=== PATIENT | female | born 1970 | race Caucasian/White ===

== ENCOUNTER 2023-06-19 14:15 | Inpatient (IN) | payer OTHER, SELFPAY ==
[2023-06-19 14:55] VITALS: BP 111/53; PULSE 62; RESP 18; TEMP 36.6; O2SAT 97
[2023-06-19 14:57] VITALS: BMI 23.5
--- NOTE | 2023-06-19 15:27 | PC.ADMIT ---
[facility] B[facility] 1 with psychotic features. The precipitant of admission includes paranoia, disorganization and delusions. She is not alert, oriented to person, place or time. She is cooperative with admission process. Patient reports she is tired. Affect is anxious. She endorsed AVH but did not elaborate on what is being said or seen. Thought process is disorganized and ability to focus is poor. Appetite and sleep is okay. Tox screen is negative. She reports bruises all over but none noticed by TW during skin assessment. She denies other physical complaint. She denies ideation, plan or intent to harm self or others. Patient is placed on 15 minute checks for safety.?
--- NOTE | 2023-06-19 17:11 | HO.PM.IMCN ---
History of Present Illness Data of Consult Service Date: 06/19/23 Primary Care Provider: Unknown Physician HPI Reason for consult: Admission H&P Pt is a 52-year-old female with a PMH significant for?breast cancer s/p surgery in 2022 and bipolar disorder who is admitted to psychiatry unit for decompensation and hypomanic episode. Patient apparently had been progressively declining the past couple of days and exhibiting symptoms of delirium. Medical consult for admission H&P. ?Patient appears extremely hypomanic at time of interview, with slow gait, flat affect, had speaking very softly and slowly. Patient also noted to be softly crying at different points in the interview. Patient states she feels mildly nauseous, ?like I did when I was ?. Denies any vomiting. Patient otherwise has no acute medical complaints at this time. Denies chest pain/pressure, palpitations. No shortness of breath. No changes in bowel or bladder habits. Denies headache, acute vision changes. Review of Systems Review of Systems: Slight nausea, no vomiting Patient otherwise has no acute medical complaints at this time [facility] Medical History (Updated 06/19/23 @ 18:20 by ADELITA Sumner) Bipolar disorder Breast cancer, right Surgical History (Updated 06/19/23 @ 18:18 by ADELITA Sumner) H/O bilateral oophorectomy Social History Household Members: Spouse and Children Household Members Other:: , 2 other children Housing: House Do you presently have visiting nurse or other home services: No Patient Tobacco Use Status: Never used Tobacco Use of substances other than those prescribed or required for medical reasons: No Currently Displaying Signs/Symptoms of Drug Intoxication Withdrawal: No Any prior treatment program specific to substance use: No Have you been hit, kicked, punched, or otherwise hurt by someone within the past year? If so, by whom?: No Do you feel safe in your current relationship?: Yes Is there a partner from a previous relationship who is making you feel unsafe now?: No Are you made to feel afraid or neglected: No Advance Directives: No Do you have thoughts of harming others: None Do you have a plan to hurt others: No Plan Recently lost weight without trying: No How much weight loss: Not applicable Eating poorly because of decreased appetite: No Nutrition screen score: 0 Nutrition Risks: No Nutritional Risk Patient : No : No Poor oral hygiene: No Meds Allergies Allergy/AdvReac Type Severity Reaction Status Date / Time Unable to Assess Allergy Verified 06/19/23 14:18 Active Medications: Current Medications Acetaminophen (Acetaminophen 325 Mg Tablet) 650 mg PO Q6H PRN PRN Reason: Headache/Pain Mild Scale (1-3) Al Hydroxide/Mg Hydroxide (Magnesium Hydrox/Alum Hydrox 30 Ml Oral.Susp) 30 ml PO Q6H PRN PRN Reason: Heartburn/Nausea Anastrozole (Anastrozole 1 Mg Tablet) 1 mg PO DAILY [facility] Hydroxyzine HCl (Hydroxyzine Hcl 25 Mg Tablet) 25 mg PO Q6H PRN PRN Reason: Anxiety Lamotrigine (Lamotrigine 100 Mg Tablet) 100 mg PO BEDTIME [facility] Magnesium Hydroxide (Milk Of Magnesia 30 Ml Oral.Susp) 30 ml PO DAILY PRN PRN Reason: Constipation Nicotine Polacrilex (Nicotine Polacrilex 2 Mg Gum) 4 mg BUCCAL Q2H PRN PRN Reason: Nicotine Cravings Non-Formulary Medication (Lumateperone [Caplyta]) 10.5 mg PO BEDTIME [facility] Non-Formulary Medication (Lumateperone [Caplyta]) 21 mg PO BEDTIME [facility] Non-Formulary Medication (Lumateperone [Caplyta]) 42 mg PO BEDTIME [facility] Non-Formulary Medication (Lurasidone) 120 mg PO BEDTIME [facility] Non-Formulary Medication ([place] 8-Fht-Wrk-Fish Oil) 1 cap PO QAM [facility] Oxcarbazepine (Oxcarbazepine 300 Mg Tablet) 300 mg PO BEDTIME [facility] Trazodone HCl (Trazodone Hcl 50 Mg Tablet) 50 mg PO BEDTIME MRX1 PRN PRN Reason: Insomnia Home Medications Medication Instructions Recorded Confirmed Last Taken Type anastrozole 1 mg tablet 1 mg PO DAILY 06/19/23 06/19/23 Unknown History lamotrigine 100 mg tablet 100 mg PO BEDTIME 06/19/23 06/19/23 Unknown History lorazepam 1 mg tablet (Ativan) 1 mg PO 06/19/23 Unknown History lumateperone 10.5 mg capsule 10.5 mg PO BEDTIME 06/19/23 06/19/23 Unknown History (Caplyta) lumateperone 21 mg capsule 21 mg PO BEDTIME 06/19/23 06/19/23 Unknown History (Caplyta) lumateperone 42 mg capsule 42 mg PO BEDTIME 06/19/23 06/19/23 Unknown History (Caplyta) lurasidone 120 mg tablet 120 mg PO BEDTIME 06/19/23 06/19/23 Unknown History omega-3 300 mg-dha 120 mg-epa 180 1 cap PO QAM 06/19/23 06/19/23 Unknown History mg-fish oil 1,000 mg capsule oxcarbazepine 300 mg tablet 300 mg PO BEDTIME 06/19/23 06/19/23 Unknown History Physical Exam Vital Signs and Narrative: Vital Signs: Last Vital Signs Temp 97.9 F 06/19/23 14:55 Pulse 62 06/19/23 14:55 Resp 18 06/19/23 14:55 BP 111/53 L 06/19/23 14:55 Pulse Ox 97 06/19/23 14:55 O2 Del Method Room Air 06/19/23 14:55 BMI result Body Mass Index 23.5 General: AOx3, no acute distress Resp: CTA bilaterally CVS: S1, S2, RRR GI: +BS, NT, no distention Skin: Warm, dry Neuro: Cranial nerves II-XII grossly intact bilaterally. Motor grossly intact bilaterally Extremities: No edema Psych: Flat affect, speaking very slowly and quietly, crying at times Assessment and Plan (1) Medical clearance for psychiatric admission: Status: Acute Plan Pt is a 52-year-old female with a PMH significant for?breast cancer s/p surgery in 2022 and bipolar disorder who is admitted to [facility] psychiatry unit for decompensation and hypomanic episode. Patient apparently had been progressively declining the past couple of days and exhibiting symptoms of delirium. Medical consult for admission H&P. Mood disorder Plan as per psychiatry Hx of right breast cancer s/p surgery earlier this year States was scheduled to begin radiation therapy tomorrow Not currently on chemo F/U outpatient to reschedule radiation Nausea Ondansetron prn Pt otherwise denies any other acute complaints or chronic conditions at this time. Thank you for allowing us to participate in the care of this patient. Signing off at this time. Please re-consult if any acute complaints or issues arise.
[2023-06-19 20:08] VITALS: BP 118/61; PULSE 66; RESP 14; TEMP 36.1; O2SAT 98
[2023-06-19] MEDS: lamoTRIgine 25 MG TABLET 50 MG PO (21:07)
[2023-06-19] MEDS: Lurasidone HCl 40 MG TABLET 120 MG PO (21:07)
[2023-06-19] MEDS: OXcarbazepine 300 MG TABLET PO (21:07)
[2023-06-19] MEDS: Ibuprofen 600 MG TABLET PO (22:07)
[2023-06-20 00:40] VITALS: BP 113/62; PULSE 58; RESP 16; O2SAT 96
--- NOTE | 2023-06-20 02:01 | PC.NURSE ---
Pt came out to nurse's station at 0040 and was c/o dizziness. VS were 113/62 58bpm 96% Sp02 16 RR. Pt encouraged to drink more fluids and given a pitcher of water for her room. Also educated pt to wait a minute and sit on edge of bed before standing as getting up too quickly can cause dizziness and can be unsafe if she falls.
[2023-06-20 07:25] VITALS: BP 98/50; PULSE 59; RESP 16; TEMP 36.2; O2SAT 95
[2023-06-20] MEDS: Anastrozole 1 MG TABLET PO (09:21)
--- NOTE | 2023-06-20 12:04 | HO.PSYADMNOT ---
HPI Date of Service: 06/20/23 Chief Complaint: Psychosis HPI Narrative: per crisis eval, pt voluntarily presented to [facility], with her , seeking inpt care. she was described as not being oriented to time, place, person, or situation at presentation and was unable to participate in evaluation.she appeared to be hyper-voodoo, lying in blanket occasionally raising her arms to the air as if beseeching, making voodoo-themed utterances. per collateral from , pt had medication change this fall and recently arrived at therapeutic dose of new medication, which does not appear to be helping. she has become progressively more psychotic in recent days. she had breast CA Dx this fall and had successful surgery, had not been on chemo but had been getting radiation Tx (stopped since psychosis recrudescence). on interview with MD, pt states we are in [place] and is unable to name the name of this facility, even after being told we are in [place]. believes we are on 4th floor. states xmas is june 29. unable to say whether this is a typcail conor presentation for her, saying her manias used to be more angry, but now they are fun because i get to see all the things i want to see. she references voodoo entities. she endorsed hearing the voice of god presently. she reported that her mother 5 years ago and at the same time she had her ovaries removed, and then her mental illness began ( corroborates this information). she reports fear of needles and only staying on lithium briefly because of that. per , lithium worked well for her. both and pt report negative experience with VPA, saying it exacerbated conor (possibly delirium?). she has not tried tegretol. evidence-based mood stabilizers reviewed with pt, she agrees to trial of lithium. per conversation with , pt has been on various medications over the past 4 years, and has not become stable. he feels that trileptal and lamictal have been completely ineffective, but that the brief period she was on lithium she did much better. he does not believe caplyta has helped and is in favor of DCing lamictal, trileptal, and caplyta. he reports conversation with pt's oncologist, Dr. King of [facility], whom he reports endorsed DC of anastrozole for now. Past Psychiatric History: hosps: 3 prior SA: denies SIB: denies HIB: denies outpt: seen at [facility] dann pretty prescriber lithium - h/o trial, briefly, DCed due to pt's fear of needles VPA - both pt and report worsened conor with VPA. ? delirium? tegretol - no h/o trial Medical Evaluation Reviewed: Hospitalist Inga Pending [facility] Medical History (Updated 06/20/23 @ 14:25 by Tony Anderson MD) Bipolar disorder Breast cancer, right Narrative: 03/2023 had breast CA sugery Surgical History (Updated 06/19/23 @ 18:18 by ADELITA Sumner) H/O bilateral oophorectomy Family History: depression - sister, brother, father Social History: , works as a massage therapist. born and raised in [place]. 2 kids. 1 sister. 1 brother. Substance History: denies use of all substances Trauma History: denies any trauma Hx Diagnostics Vital Signs (24Hr): Vital Signs - 24 hr 06/19/23 14:55 06/19/23 20:08 06/20/23 00:40 Temperature 97.9 F 97.0 F Pulse Rate 62 66 58 Respiratory Rate 18 14 16 Blood Pressure 111/53 L 118/61 113/62 Pulse Oximetry 97 98 96 Oxygen Delivery Method Room Air Room Air Room Air 06/20/23 07:25 Temperature 97.2 F Pulse Rate 59 Respiratory Rate 16 Blood Pressure 98/50 L Pulse Oximetry 95 Oxygen Delivery Method Room Air BMI result Body Mass Index 23.5 Meds/Allergies Meds Home Medications Medication Instructions Recorded Confirmed Type anastrozole 1 mg tablet 1 mg PO DAILY 06/19/23 06/19/23 History lamotrigine 100 mg tablet 100 mg PO BEDTIME 06/19/23 06/19/23 History lorazepam 1 mg tablet (Ativan) 1 mg PO 06/19/23 History lumateperone 10.5 mg capsule 10.5 mg PO BEDTIME 06/19/23 06/19/23 History (Caplyta) lumateperone 21 mg capsule 21 mg PO BEDTIME 06/19/23 06/19/23 History (Caplyta) lumateperone 42 mg capsule 42 mg PO BEDTIME 06/19/23 06/19/23 History (Caplyta) lurasidone 120 mg tablet 120 mg PO BEDTIME 06/19/23 06/19/23 History omega-3 300 mg-dha 120 mg-epa 180 1 cap PO QAM 06/19/23 06/19/23 History mg-fish oil 1,000 mg capsule oxcarbazepine 300 mg tablet 300 mg PO BEDTIME 06/19/23 06/19/23 History Allergies Allergies Allergy/AdvReac Type Severity Reaction Status Date / Time Unable to Assess Allergy Verified 06/19/23 14:18 Mental Status Exam Mental Status Exam Narrative: dressed in a [place]-bear print onesie, adequately groomed. cooperative. no PMA/PMR. speech soft, nml rate, amount. decr prosody. nml latency. thoughts generally linear and logical. affect constricted, hypo-intense, non-labile. mood very tired. denies SI/SIBI/HI/VH. endorses hearing just god. the evil one doesn't talk to me as much as he used to. Assessment & Plan Assessment & Plan (1) Bipolar I disorder with conor: Status: Acute Code(s): F31.10 - Bipolar disorder, current episode manic without psychotic features, unspecified Plan conor - DC caplyta, add zyprexa for now. start lithium per pt request. taper and DC lamictal and trileptal as not evidence-based mood stabilizers and not indicated in the present clinical context. cancer - per collateral from pt's , DC anastrozole for now on the word of Dr. King, pt's oncologist at [facility]. Dr. King is concerned the hormonal aspect of the medication may be complicating matters. Patient educated on: diagnosis and medication risk/benefits Reason for continued inpatient stay Substantial Risk for: inability to function and rapid decompensation Statement Statement: I have reviewed the history and physical and performed a pertinent examination on my patient. No changes have occurred unless specified. If the History and Physical was not performed prior to admission, the Hospitalist's service will be consulted for completing the admission physical. Time Spent With Patient Time: Total time managing care of this patient today __75__ minutes.
[2023-06-20] MEDS: Lithium Carbonate ER 450 MG TABLET.ER PO ×2 (14:26→21:50)
[2023-06-20] MEDS: Benzocaine 20 % Oral Gel 9 GM TUBE 1 APPL MUCOUS MEM (14:31)
[2023-06-20] MEDS: Acetaminophen 325 MG TABLET 650 MG PO (14:32)
[2023-06-20] MEDS: Fluticasone Propionate Nasal 16 GM SPRAY 1 SPRAY NOSTRIL-B (14:46)
--- NOTE | 2023-06-20 18:15 | PC.NURSE ---
Pt appeared confused and wandered into a male patient's room and ended up in his bathroom with her clothes off. Male pt was not in the room. Pt was crying and stated I don't know how I ended up here, I'm so confused I don't know what happened. Pt placed on 5 minute checks locked bathroom for safety.
[2023-06-20 20:01] VITALS: BP 127/77; PULSE 63; RESP 18; TEMP 36.7; O2SAT 97
[2023-06-20] MEDS: OLANZapine 10 MG TABLET PO (21:50)
[2023-06-20] MEDS: lamoTRIgine 25 MG TABLET 50 MG PO (21:51)
[2023-06-20] MEDS: OXcarbazepine 300 MG TABLET PO (21:51)
[2023-06-21 08:30] VITALS: BP 117/57; PULSE 61; TEMP 36.2; O2SAT 96
[2023-06-21] MEDS: Lithium Carbonate ER 450 MG TABLET.ER PO ×2 (09:15→20:36)
[2023-06-21] MEDS: Ibuprofen 600 MG TABLET PO (16:27)
[2023-06-21 20:04] VITALS: BP 107/59; PULSE 66; RESP 15; TEMP 36.1; O2SAT 97
[2023-06-21] MEDS: Benzocaine 20 % Oral Gel 9 GM TUBE 1 APPL MUCOUS MEM (20:34)
[2023-06-21] MEDS: OLANZapine 5 MG TABLET PO (20:35)
[2023-06-21] MEDS: lamoTRIgine 25 MG TABLET 50 MG PO (20:35)
[2023-06-21] MEDS: OXcarbazepine 300 MG TABLET PO (20:36)
--- NOTE | 2023-06-21 20:48 | P.PNPSI_ITS ---
Subjective Subjective Date of Service: 06/21/23 Reason For Visit: Psychosis Interim History: c/o feeling too tired. feels her mood is good. continues to experience AH. reports having had a couple of scary dreams last night. agrees to decrease olanzapine at HS to 5 mg. per staff, got naked in peer's bathroom. low anx/dep reported, but pt presents as anxious and depressed. c/o lithium's making her tired. religiously preoccupied. taking medications. slept well. Mental Status Exam Mental Status Exam Narrative: dressed in street clothes, adequately groomed. cooperative. no PMA/PMR. speech soft, nml rate, amount. decr prosody. nml latency. thoughts generally linear and logical. affect constricted, hypo-intense, non-labile. mood good. no SI/SIBI/HI/VH expressed. endorses hearing AH of god. Diagnostics Vital Signs (24Hr): Vital Signs - 24 hr 06/21/23 08:30 06/21/23 20:04 Temperature 97.2 F 97.0 F Pulse Rate 61 66 Respiratory Rate 15 Blood Pressure 117/57 L 107/59 L Pulse Oximetry 96 97 Oxygen Delivery Method Room Air Room Air BMI result Body Mass Index 23.5 Medications Medications Current Medications Acetaminophen (Acetaminophen 325 Mg Tablet) 650 mg PO Q6H PRN PRN Reason: Headache/Pain Mild Scale (1-3) Last Admin: 06/20/23 14:32 Dose: 650 mg Al Hydroxide/Mg Hydroxide (Magnesium Hydrox/Alum Hydrox 30 Ml Oral.Susp) 30 ml PO Q6H PRN PRN Reason: Heartburn/Nausea Anastrozole (Anastrozole 1 Mg Tablet) 1 mg PO DAILY [facility] Last Admin: 06/20/23 09:21 Dose: 1 mg Benzocaine (Benzocaine 20 % Oral Gel 9 Gm Tube) 1 appl MUCOUS MEM QID PRN; Protocol PRN Reason: dental pain Last Admin: 06/21/23 20:34 Dose: 1 appl Fluticasone Propionate (Fluticasone Propionate Nasal 16 Gm [place]) 1 spray NOSTRIL-B DAILY [facility] Last Admin: 06/21/23 08:23 Dose: Not Given Hydroxyzine HCl (Hydroxyzine Hcl 25 Mg Tablet) 25 mg PO Q6H PRN PRN Reason: Anxiety Ibuprofen (Ibuprofen 600 Mg Tablet) 600 mg PO Q6H PRN PRN Reason: Pain, Moderate(Pain Scale 4-6) Last Admin: 06/21/23 16:27 Dose: 600 mg Lamotrigine (Lamotrigine 25 Mg Tablet) 50 mg PO BEDTIME [facility] Last Admin: 06/21/23 20:35 Dose: 50 mg [place] Carbonate ([place] Carbonate Er 450 Mg Tablet.Er) 450 mg PO BID [facility] Last Admin: 06/21/23 20:36 Dose: 450 mg Magnesium Hydroxide (Milk Of Magnesia 30 Ml Oral.Susp) 30 ml PO DAILY PRN PRN Reason: Constipation Nicotine Polacrilex (Nicotine Polacrilex 2 Mg Gum) 4 mg BUCCAL Q2H PRN PRN Reason: Nicotine Cravings Olanzapine (Olanzapine 5 Mg Tablet) 5 mg PO BEDTIME [facility] Last Admin: 06/21/23 20:35 Dose: 5 mg Ondansetron HCl (Ondansetron Odt 4 Mg Tab.Rapdis) 4 mg TRANSLINGU Q8H PRN PRN Reason: Nausea and Vomiting Oxcarbazepine (Oxcarbazepine 300 Mg Tablet) 300 mg PO BEDTIME [facility] Last Admin: 06/21/23 20:36 Dose: 300 mg Trazodone HCl (Trazodone Hcl 50 Mg Tablet) 50 mg PO BEDTIME MRX1 PRN PRN Reason: Insomnia Allergies Allergies Allergy/AdvReac Type Severity Reaction Status Date / Time Unable to Assess Allergy Verified 06/19/23 14:18 Assessment & Plan Assessment & Plan (1) Bipolar I disorder with conor: Status: Acute Code(s): F31.10 - Bipolar disorder, current episode manic without psychotic features, unspecified Plan 1) conor - DC caplyta, add zyprexa 06/20. start lithium per pt request 06/20. taper and DC lamictal and trileptal as not evidence-based mood stabilizers and not indicated in the present clinical context. 06/21 decrease HS zyprexa from 10 mg to 5 mg QHS after pt c/o sedation. 2) cancer - per collateral from pt's , DC anastrozole 06/20 on the word of Dr. King, [place]ologist [place] [facility] King is concerned the hormonal aspect of the medication may be complicating matters. Reason for continued inpatient stay Substantial Risk for: harm to self, inability to function and rapid decompensation Time Spent With Patient Time: Total time managing care of this patient today ____ minutes.
[2023-06-22] MEDS: Ibuprofen 600 MG TABLET PO ×3 (07:03→22:18)
[2023-06-22] MEDS: Lithium Carbonate ER 450 MG TABLET.ER PO ×2 (09:22→21:22)
[2023-06-22] MEDS: hydrOXYzine HCL 25 MG TABLET PO ×2 (09:41→21:24)
[2023-06-22 13:07] VITALS: BP 137/62; PULSE 79; RESP 18; TEMP 36.2; O2SAT 97
--- NOTE | 2023-06-22 19:40 | HO.PSYCHPN ---
Subjective Subjective Date of Service: 06/22/23 Reason For Visit: Psychosis Interim History: pt states she started out shaky but feeling a little better today. feels her mood is nervous and distracted by racing thoughts. not as tired this morning as she was yesterday. per staff, spending time with hypersexual male peer. tired this morning. appeared to have slept adequately. compliant with lithium. Mental Status Exam Mental Status Exam Narrative: dressed in street clothes, adequately groomed. cooperative. no PMA/PMR. speech soft, nml rate, amount. decr prosody. nml latency. thoughts generally linear and logical. affect constricted, hypo-intense, non-labile. mood nervous, distracted by racing thoughts. no SI/SIBI/HI/AVH expressed. Diagnostics Vital Signs (24Hr): Vital Signs - 24 hr 06/21/23 20:04 06/22/23 13:07 Temperature 97.0 F 97.2 F Pulse Rate 66 79 Respiratory Rate 15 18 Blood Pressure 107/59 L 137/62 Pulse Oximetry 97 97 Oxygen Delivery Method Room Air Room Air BMI result Body Mass Index 23.5 Medications Medications Current Medications Acetaminophen (Acetaminophen 325 Mg Tablet) 650 mg PO Q6H PRN PRN Reason: Headache/Pain Mild Scale (1-3) Last Admin: 06/20/23 14:32 Dose: 650 mg Al Hydroxide/Mg Hydroxide (Magnesium Hydrox/Alum Hydrox 30 Ml Oral.Susp) 30 ml PO Q6H PRN PRN Reason: Heartburn/Nausea Anastrozole (Anastrozole 1 Mg Tablet) 1 mg PO DAILY [facility] Last Admin: 06/20/23 09:21 Dose: 1 mg Benzocaine (Benzocaine 20 % Oral Gel 9 Gm Tube) 1 appl MUCOUS MEM QID PRN; Protocol PRN Reason: dental pain Last Admin: 06/21/23 20:34 Dose: 1 appl Fluticasone Propionate (Fluticasone Propionate Nasal 16 Gm [place]) 1 spray NOSTRIL-B DAILY [facility] Last Admin: 06/22/23 09:23 Dose: Not Given Hydroxyzine HCl (Hydroxyzine Hcl 25 Mg Tablet) 25 mg PO Q6H PRN PRN Reason: Anxiety Last Admin: 06/22/23 09:41 Dose: 25 mg Ibuprofen (Ibuprofen 600 Mg Tablet) 600 mg PO Q6H PRN PRN Reason: Pain, Moderate(Pain Scale 4-6) Last Admin: 06/22/23 13:10 Dose: 600 mg Lamotrigine (Lamotrigine 25 Mg Tablet) 25 mg PO BEDTIME [facility] [place] Carbonate ([place] Carbonate Er 450 Mg Tablet.Er) 450 mg PO BID [facility] Last Admin: 06/22/23 09:22 Dose: 450 mg Magnesium Hydroxide (Milk Of Magnesia 30 Ml Oral.Susp) 30 ml PO DAILY PRN PRN Reason: Constipation Nicotine Polacrilex (Nicotine Polacrilex 2 Mg Gum) 4 mg BUCCAL Q2H PRN PRN Reason: Nicotine Cravings Olanzapine (Olanzapine 5 Mg Tablet) 5 mg PO BEDTIME [facility] Last Admin: 06/21/23 20:35 Dose: 5 mg Ondansetron HCl (Ondansetron Odt 4 Mg Tab.Rapdis) 4 mg TRANSLINGU Q8H PRN PRN Reason: Nausea and Vomiting Oxcarbazepine (Oxcarbazepine 300 Mg Tablet) 300 mg PO BEDTIME [facility] Last Admin: 06/21/23 20:36 Dose: 300 mg Trazodone HCl (Trazodone Hcl 50 Mg Tablet) 50 mg PO BEDTIME MRX1 PRN PRN Reason: Insomnia Allergies Allergies Allergy/AdvReac Type Severity Reaction Status Date / Time Unable to Assess Allergy Verified 06/19/23 14:18 Assessment & Plan Assessment & Plan (1) Bipolar I disorder with conor: Status: Acute Code(s): F31.10 - Bipolar disorder, current episode manic without psychotic features, unspecified Plan 1) conor - DC caplyta, add zyprexa 06/20. start lithium per pt request 06/20. taper and DC lamictal and trileptal as not evidence-based mood stabilizers and not indicated in the present clinical context. 06/21 decrease HS zyprexa from 10 mg to 5 mg QHS after pt c/o sedation. DC lamictal 06/23. 2) cancer - per collateral from pt's , DC anastrozole 06/20 on the word of Dr. King, pt's oncologist at [facility] [place]. Dr. King is concerned the hormonal aspect of the medication may be complicating matters. Reason for continued inpatient stay Substantial Risk for: inability to function and rapid decompensation Time Spent With Patient Time: Total time managing care of this patient today ____ minutes.
[2023-06-22] MEDS: OXcarbazepine 300 MG TABLET PO (21:23)
[2023-06-22] MEDS: OLANZapine 5 MG TABLET PO (21:23)
[2023-06-22] MEDS: lamoTRIgine 25 MG TABLET PO (21:23)
[2023-06-22 21:28] VITALS: BP 123/58; PULSE 97; RESP 16; TEMP 36.1; O2SAT 97
[2023-06-23 08:25] VITALS: BP 129/77; PULSE 65; RESP 16; TEMP 36.6; O2SAT 95
[2023-06-23] MEDS: Lithium Carbonate ER 450 MG TABLET.ER PO ×2 (09:33→20:55)
[2023-06-23] MEDS: hydrOXYzine HCL 25 MG TABLET PO ×2 (12:44→21:00)
--- NOTE | 2023-06-23 18:04 | HO.PSYCHPN ---
Subjective Subjective Date of Service: 06/23/23 Reason For Visit: Psychosis Interim History: calm, cooperative. states she is sad bcse she is not at home for xmas. reports her visited this morning, which was nice. states she feels OK on the meds and is in agreement to continue with current regimen. needle-phobic, discussed pre-medicating blood draw with benzo. amenable to fully DC lamictal. per staff, depressed and anxious, blunted affect. tearful visit with umimlo-ur-fet yesterday. feeling confused due to anxiety. Mental Status Exam Mental Status Exam Narrative: dressed in street clothes, adequately groomed. cooperative. no PMA/PMR. speech soft, nml rate, amount. decr prosody. nml latency. thoughts generally linear and logical. affect constricted, hypo-intense, non-labile. mood sad because i'm not at home. no SI/SIBI/HI/AVH expressed. Diagnostics Vital Signs (24Hr): Vital Signs - 24 hr 06/22/23 21:28 06/23/23 08:25 Temperature 97.0 F 97.8 F Pulse Rate 97 65 Respiratory Rate 16 16 Blood Pressure 123/58 L 129/77 Pulse Oximetry 97 95 Oxygen Delivery Method Room Air Room Air BMI result Body Mass Index 23.5 Medications Medications Current Medications Acetaminophen (Acetaminophen 325 Mg Tablet) 975 mg PO Q6H PRN PRN Reason: Headache/Pain Mild Scale (1-3) Al Hydroxide/Mg Hydroxide (Magnesium Hydrox/Alum Hydrox 30 Ml Oral.Susp) 30 ml PO Q6H PRN PRN Reason: Heartburn/Nausea Anastrozole (Anastrozole 1 Mg Tablet) 1 mg PO DAILY [facility] Last Admin: 06/20/23 09:21 Dose: 1 mg Benzocaine (Benzocaine 20 % Oral Gel 9 Gm Tube) 1 appl MUCOUS MEM QID PRN; Protocol PRN Reason: dental pain Last Admin: 06/21/23 20:34 Dose: 1 appl Fluticasone Propionate (Fluticasone Propionate Nasal 16 Gm [place]) 1 spray NOSTRIL-B DAILY [facility] Last Admin: 06/23/23 09:20 Dose: Not Given Hydroxyzine HCl (Hydroxyzine Hcl 25 Mg Tablet) 25 mg PO Q6H PRN PRN Reason: Anxiety Last Admin: 06/23/23 12:44 Dose: 25 mg [place] Carbonate ([place] Carbonate Er 450 Mg Tablet.Er) 450 mg PO BID [facility] Last Admin: 06/23/23 09:33 Dose: 450 mg Magnesium Hydroxide (Milk Of Magnesia 30 Ml Oral.Susp) 30 ml PO DAILY PRN PRN Reason: Constipation Nicotine Polacrilex (Nicotine Polacrilex 2 Mg Gum) 4 mg BUCCAL Q2H PRN PRN Reason: Nicotine Cravings Olanzapine (Olanzapine 5 Mg Tablet) 5 mg PO BEDTIME [facility] Last Admin: 06/22/23 21:23 Dose: 5 mg Ondansetron HCl (Ondansetron Odt 4 Mg Tab.Rapdis) 4 mg TRANSLINGU Q8H PRN PRN Reason: Nausea and Vomiting Oxcarbazepine (Oxcarbazepine 300 Mg Tablet) 300 mg PO BEDTIME [facility] Last Admin: 06/22/23 21:23 Dose: 300 mg Trazodone HCl (Trazodone Hcl 50 Mg Tablet) 50 mg PO BEDTIME MRX1 PRN PRN Reason: Insomnia Allergies Allergies Allergy/AdvReac Type Severity Reaction Status Date / Time Unable to Assess Allergy Verified 06/19/23 14:18 Assessment & Plan Assessment & Plan (1) Bipolar I disorder with conor: Status: Acute Code(s): F31.10 - Bipolar disorder, current episode manic without psychotic features, unspecified Plan 1) conor - DC caplyta, add zyprexa 06/20. start lithium per pt request 06/20. taper and DC lamictal and trileptal as not evidence-based mood stabilizers and not indicated in the present clinical context. 06/21 decrease HS zyprexa from 10 mg to 5 mg QHS after pt c/o sedation. DCed lamictal 06/23. seems to have slowed down much by 06/23. check lithium level and labs 06/25, provide pt with benzo prep for blood draw as she is severely needle-phobic. 2) cancer - per collateral from pt's , DC anastrozole 06/20 on the word of Dr. King, [place] [facility] [place] is concerned the hormonal aspect of the medication may be complicating matters. Reason for continued inpatient stay Substantial Risk for: inability to function and rapid decompensation Time Spent With Patient Time: Total time managing care of this patient today ____ minutes.
[2023-06-23 20:00] VITALS: BP 136/98; PULSE 75; RESP 16; TEMP 36.6; O2SAT 97
[2023-06-23] MEDS: OLANZapine 5 MG TABLET PO (21:00)
[2023-06-23] MEDS: OXcarbazepine 300 MG TABLET PO (21:00)
[2023-06-24 07:55] VITALS: BP 135/82; PULSE 78; RESP 16; TEMP 36.6; O2SAT 97
[2023-06-24] MEDS: OLANZapine 5 MG TABLET PO (13:32)
[2023-06-24] MEDS: LORazepam 1 MG TABLET PO (13:32)
[2023-06-24] MEDS: Lithium Carbonate ER 450 MG TABLET.ER PO ×2 (13:32→20:37)
[2023-06-24] MEDS: LORazepam 0.5 MG TABLET PO ×2 (15:32→20:37)
--- NOTE | 2023-06-24 16:08 | HO.PSYCHPN ---
Subjective Subjective Date of Service: 06/24/23 Reason For Visit: Psychosis Interim History: seated on edge of the bed, staring ahead, some squirmy movements of legs together, periodic gripping of mattress in her hands. nearly non-responsive. very soft mono-syllabic utterances once or twice. no questions or complaints. per staff, denies dep. anx 6. slowed. wandering the milieu. taking meds. reading bible and praying. appears to be more psychotic/catatonic. discussed pt's care with pt's , reviewing developments and plan. Mental Status Exam Mental Status Exam Narrative: dressed in street clothes, adequately groomed. poorly cooperative. some PMA of repeated purposeless movements, but generally motionless and appearing catatonic. speech soft, almost nil. decr prosody. incr latency. thoughts unable to assess. affect constricted, hypo-intense, non-labile. mood unable to assess. no SI/SIBI/HI/AVH expressed. Diagnostics Vital Signs (24Hr): Vital Signs - 24 hr 06/23/23 20:00 06/24/23 07:55 Temperature 97.9 F 97.9 F Pulse Rate 75 78 Respiratory Rate 16 16 Blood Pressure 136/98 H 135/82 Pulse Oximetry 97 97 Oxygen Delivery Method Room Air Room Air BMI result Body Mass Index 23.5 Medications Medications Current Medications Acetaminophen (Acetaminophen 325 Mg Tablet) 975 mg PO Q6H PRN PRN Reason: Headache/Pain Mild Scale (1-3) Al Hydroxide/Mg Hydroxide (Magnesium Hydrox/Alum Hydrox 30 Ml Oral.Susp) 30 ml PO Q6H PRN PRN Reason: Heartburn/Nausea Anastrozole (Anastrozole 1 Mg Tablet) 1 mg PO DAILY [facility] Last Admin: 06/20/23 09:21 Dose: 1 mg Benzocaine (Benzocaine 20 % Oral Gel 9 Gm Tube) 1 appl MUCOUS MEM QID PRN; Protocol PRN Reason: dental pain Last Admin: 06/21/23 20:34 Dose: 1 appl Fluticasone Propionate (Fluticasone Propionate Nasal 16 Gm [place]) 1 spray NOSTRIL-B DAILY [facility] Last Admin: 06/24/23 08:46 Dose: Not Given Hydroxyzine HCl (Hydroxyzine Hcl 25 Mg Tablet) 25 mg PO Q6H PRN PRN Reason: Anxiety Last Admin: 06/23/23 21:00 Dose: 25 mg [place] Carbonate ([place] Carbonate Er 450 Mg Tablet.Er) 450 mg PO BID [facility] Last Admin: 06/24/23 13:32 Dose: 450 mg Lorazepam (Lorazepam 0.5 Mg Tablet) 0.5 mg PO TID [facility] Last Admin: 06/24/23 15:32 Dose: 0.5 mg Magnesium Hydroxide (Milk Of Magnesia 30 Ml Oral.Susp) 30 ml PO DAILY PRN PRN Reason: Constipation Nicotine Polacrilex (Nicotine Polacrilex 2 Mg Gum) 4 mg BUCCAL Q2H PRN PRN Reason: Nicotine Cravings Olanzapine (Olanzapine 10 Mg Tablet) 10 mg PO BEDTIME [facility] Ondansetron HCl (Ondansetron Odt 4 Mg Tab.Rapdis) 4 mg TRANSLINGU Q8H PRN PRN Reason: Nausea and Vomiting Oxcarbazepine (Oxcarbazepine 300 Mg Tablet) 300 mg PO BEDTIME [facility] Last Admin: 06/23/23 21:00 Dose: 300 mg Trazodone HCl (Trazodone Hcl 50 Mg Tablet) 50 mg PO BEDTIME MRX1 PRN PRN Reason: Insomnia Allergies Allergies Allergy/AdvReac Type Severity Reaction Status Date / Time Unable to Assess Allergy Verified 06/19/23 14:18 Assessment & Plan Assessment & Plan (1) Bipolar I disorder with conor: Status: Acute Code(s): F31.10 - Bipolar disorder, current episode manic without psychotic features, unspecified Plan 1) conor - DC caplyta 42, add zyprexa 10 QHS 06/20. start lithium per pt request 06/20. taper and DC lamictal and trileptal as not evidence-based mood stabilizers and not indicated in the present clinical context. 06/21 decrease HS zyprexa from 10 mg to 5 mg QHS after pt c/o sedation. DCed lamictal 06/23. seems to have slowed down much by 06/23, appearing nearly catatonic as of 06/24. increased HS zyprexa back to 10 mg as of 06/24, started ativan 0.5 TID for guard against worsening catatonia. check lithium level and labs 06/25, provide pt with benzo prep for blood draw as she is severely needle-phobic. 2) cancer - per collateral from pt's , DC anastrozole 06/20 on the word of Dr. King, pt's oncologist at [facility] [place]. Dr. King is concerned the hormonal aspect of the medication may be complicating matters. Reason for continued inpatient stay Substantial Risk for: inability to function Time Spent With Patient Time: Total time managing care of this patient today __35__ minutes.
[2023-06-24 19:55] VITALS: BP 141/63; PULSE 71; RESP 18; TEMP 36; O2SAT 96
[2023-06-24] MEDS: OLANZapine 10 MG TABLET PO (20:35)
[2023-06-24] MEDS: OXcarbazepine 300 MG TABLET PO (20:35)
[2023-06-24 22:46] LABS: COVID-19 Test Negative (Negative); IDNOW Serial# 08D9AD1C
[2023-06-25 08:35] VITALS: BP 116/60; PULSE 51; RESP 14; TEMP 36.2; O2SAT 99
[2023-06-25] MEDS: Lithium Carbonate ER 450 MG TABLET.ER PO ×2 (08:36→20:23)
[2023-06-25] MEDS: LORazepam 0.5 MG TABLET PO ×3 (08:37→20:23)
--- NOTE | 2023-06-25 08:54 | P.PNPSI_ITS ---
Subjective Subjective Date of Service: 06/25/23 Reason For Visit: Psychosis Subjective Notes: Conditional Voluntary Interim History: Pt reports feeling tired and somnolent. she reports feeling this way even before taking medications. She reports hearing voices of God and seeing horrible things devil is doing to others. She denies SI/HI. She is mostly in her room, minimally engaging with others. She is verbal and cooperative with this web content writer. Review of Systems Review of Systems Slight nausea, no vomiting Patient otherwise has no acute medical complaints at this time Mental Status Exam Mental Status Exam Narrative: dressed in street clothes, adequately groomed. poorly cooperative. some PMA of repeated purposeless movements, but generally motionless and appearing catatonic. speech soft, almost nil. decr prosody. incr latency. thoughts unable to assess. affect constricted, hypo-intense, non-labile. mood unable to assess. no SI/SIBI/HI/AVH expressed. Diagnostics Vital Signs (24Hr): Vital Signs - 24 hr 06/24/23 19:55 06/25/23 08:35 Temperature 96.8 F 97.2 F Pulse Rate 71 51 Respiratory Rate 18 14 Blood Pressure 141/63 H 116/60 Pulse Oximetry 96 99 Oxygen Delivery Method Room Air Room Air BMI result Body Mass Index 23.5 Labs Labs: Laboratory Results - last 48 hr 06/24/23 22:10 COVID-19 ([facility]) Negative COVID-19 Clin Com See Note Medications Medications Current Medications Acetaminophen (Acetaminophen 325 Mg Tablet) 975 mg PO Q6H PRN PRN Reason: Headache/Pain Mild Scale (1-3) Al Hydroxide/Mg Hydroxide (Magnesium Hydrox/Alum Hydrox 30 Ml Oral.Susp) 30 ml PO Q6H PRN PRN Reason: Heartburn/Nausea Alprazolam (Alprazolam 0.5 Mg Tablet) 0.5 mg PO DAILY PRN PRN Reason: anxiety Anastrozole (Anastrozole 1 Mg Tablet) 1 mg PO DAILY [facility] Last Admin: 06/20/23 09:21 Dose: 1 mg Benzocaine (Benzocaine 20 % Oral Gel 9 Gm Tube) 1 appl MUCOUS MEM QID PRN; Protocol PRN Reason: dental pain Last Admin: 06/21/23 20:34 Dose: 1 appl Fluticasone Propionate (Fluticasone Propionate Nasal 16 Gm [place]) 1 spray NOSTRIL-B DAILY [facility] Last Admin: 06/25/23 08:37 Dose: Not Given Hydroxyzine HCl (Hydroxyzine Hcl 25 Mg Tablet) 25 mg PO Q6H PRN PRN Reason: Anxiety Last Admin: 06/23/23 21:00 Dose: 25 mg [place] Carbonate ([place] Carbonate Er 450 Mg Tablet.Er) 450 mg PO BID [facility] Last Admin: 06/25/23 08:36 Dose: 450 mg Lorazepam (Lorazepam 0.5 Mg Tablet) 0.5 mg PO TID [facility] Last Admin: 06/25/23 08:37 Dose: 0.5 mg Magnesium Hydroxide (Milk Of Magnesia 30 Ml Oral.Susp) 30 ml PO DAILY PRN PRN Reason: Constipation Nicotine Polacrilex (Nicotine Polacrilex 2 Mg Gum) 4 mg BUCCAL Q2H PRN PRN Reason: Nicotine Cravings Olanzapine (Olanzapine 10 Mg Tablet) 10 mg PO BEDTIME [facility] Last Admin: 06/24/23 20:35 Dose: 10 mg Ondansetron HCl (Ondansetron Odt 4 Mg Tab.Rapdis) 4 mg TRANSLINGU Q8H PRN PRN Reason: Nausea and Vomiting Oxcarbazepine (Oxcarbazepine 300 Mg Tablet) 300 mg PO BEDTIME [facility] Last Admin: 06/24/23 20:35 Dose: 300 mg Trazodone HCl (Trazodone Hcl 50 Mg Tablet) 50 mg PO BEDTIME MRX1 PRN PRN Reason: Insomnia Allergies Allergies Allergy/AdvReac Type Severity Reaction Status Date / Time Unable to Assess Allergy Verified 06/19/23 14:18 Assessment & Plan Assessment & Plan (1) Bipolar I disorder with conor: Status: Acute Code(s): F31.10 - Bipolar disorder, current episode manic without psychotic features, unspecified Plan 1) conor - DC caplyta 42, add zyprexa 10 QHS 06/20. start lithium per pt request 06/20. taper and DC lamictal and trileptal as not evidence-based mood stabilizers and not indicated in the present clinical context. 06/21 decrease HS zyprexa from 10 mg to 5 mg QHS after pt c/o sedation. DCed lamictal 06/23. seems to have slowed down much by 06/23, appearing nearly catatonic as of 06/24. increased HS zyprexa back to 10 mg as of 06/24, started ativan 0.5 TID for guard against worsening catatonia. check lithium level and labs 06/25, provide pt with benzo prep for blood draw as she is severely needle-phobic. 2) cancer - per collateral from pt's , DC anastrozole 06/20 on the word of Dr. King, pt's oncologist at [facility] [place]. King is concerned the hormonal aspect of the medication may be complicating matters. 06/25 continues to present with baptism delusions and psychosis, fearful due to VH of devil and guarded. She is not fully mute or with blank stare or waxy flexibility. will continue ativan as is. Will dc trileptal per plan to keep only on lithium. may consider different antipsychotic if too sedated with olanzapine or more sensitive to anticholigergic properties of the medications. Reason for continued inpatient stay Substantial Risk for: inability to function Time Spent With Patient Time: Total time managing care of this patient today ____ minutes.
[2023-06-25 09:40] LABS: Lithium 0.98 mmol/L (0.60-1.20)
[2023-06-25 19:45] VITALS: BP 125/57; PULSE 76; RESP 18; TEMP 36.1; O2SAT 96
[2023-06-25 20:20] VITALS: BP 114/75; PULSE 62; RESP 18
[2023-06-25] MEDS: OLANZapine 10 MG TABLET PO (20:23)
[2023-06-25 20:47] LABS: Lithium 0.98 mmol/L (0.60-1.20)
[2023-06-25 20:52] LABS: Anion Gap 16 (12-20); Blood Urea Nitrogen 23 mg/dL (9-16); Calcium 10.4 mg/dL (8.4-10.2); Carbon Dioxide 23 mmol/L (22-29); Chloride 104 mmol/L (96-108); Creatinine Clr Calc Pharmacy 79.5; Estimated Glomerular Filt Rate > 60; Glucose Random 129 mg/dL (60-115); Potassium 3.5 mmol/L (3.3-5.1); Sodium 139 mmol/L (135-145)
--- NOTE | 2023-06-26 00:32 | PC.NURSE ---
Lizet is noted to have a small reddened are on the outer aspect of her right ankle and a silver dollar sized area od superficial abrasions to the outer aspect of her left ankle. patient stated that her got the rash from her ankles rubbing on the sheets. no s/s of infection noted areas covered with large band-aides to protect the welsh from rubbing.
[2023-06-26 07:00] VITALS: BMI 23.6
[2023-06-26 08:02] VITALS: BP 103/51; PULSE 53; RESP 14; TEMP 36.4; O2SAT 95
[2023-06-26] MEDS: LORazepam 0.5 MG TABLET PO ×3 (08:31→22:29)
[2023-06-26] MEDS: Lithium Carbonate ER 450 MG TABLET.ER PO ×2 (08:31→22:29)
--- NOTE | 2023-06-26 11:30 | HO.PSYCHPN ---
Subjective Subjective Date of Service: 06/26/23 Reason For Visit: Psychosis Subjective Notes: Conditional Voluntary Interim History: Pt mostly in bed. She reports feeling tired. She continues to report fear related to voices of God and images of devil. She is covered with blanket, expressed being fearful of other pts. We discussed switching to higher potency antipsychotic- will continue ativan and monitor catatonia s/s, which at the moment I suspect pt mostly in bed due to fear related to delusions. Per nursing, pt slept through the night. Review of Systems Review of Systems Slight nausea, no vomiting Patient otherwise has no acute medical complaints at this time Mental Status Exam Mental Status Exam Narrative: Appearance: wearing hospital gown, face covered with blanket but uncovered as I asked to do so. Behavior: somewhat guarded but cooperative Speech: mostly clear, no significant delayed in responses, spontaneous Psychomotor: no agitation, some retardation TP: mostly linear TC: adventism delusions, paranoid delusions Mood: very tired ' Affect: congruent, fearful SI: none HI: none VH/AH: voices of God, visual hallucinations of devil which pt describes as terrifying Delusions: adventism/persecutory delusions Insight/judgment: fair x 2 memory/cog: alert, oriented x 3 Diagnostics Vital Signs (24Hr): Vital Signs - 24 hr 06/25/23 19:45 06/25/23 20:20 06/26/23 08:02 Temperature 97.0 F 97.5 F Pulse Rate 76 62 53 Respiratory Rate 18 18 14 Blood Pressure 125/57 L 114/75 103/51 L Pulse Oximetry 96 95 Oxygen Delivery Method Room Air Room Air BMI result Body Mass Index 23.5 Labs 06/25/23 20:11 Labs: Laboratory Results - last 48 hr 06/24/23 06/25/23 06/25/23 22:10 09:10 20:10 Sodium Potassium Chloride Carbon Dioxide Anion Gap BUN Creatinine Estim Creat Clear Calc Estimated GFR Random Glucose Calcium [place] 0.98 0.98 COVID-19 ([facility]) Negative COVID-19 Clin Com See Note 06/25/23 20:11 Sodium 139 Potassium 3.5 Chloride 104 Carbon Dioxide 23 Anion Gap 16 BUN 23 H Creatinine 0.70 Estim Creat Clear Calc 79.5 Estimated GFR > 60 Random Glucose 129 H Calcium 10.4 H Stewart COVID-19 ([facility]) COVID-19 Clin Com Medications Medications Current Medications Acetaminophen (Acetaminophen 325 Mg Tablet) 975 mg PO Q6H PRN PRN Reason: Headache/Pain Mild Scale (1-3) Al Hydroxide/Mg Hydroxide (Magnesium Hydrox/Alum Hydrox 30 Ml Oral.Susp) 30 ml PO Q6H PRN PRN Reason: Heartburn/Nausea Alprazolam (Alprazolam 0.5 Mg Tablet) 0.5 mg PO DAILY PRN PRN Reason: anxiety Anastrozole (Anastrozole 1 Mg Tablet) 1 mg PO DAILY [facility] Last Admin: 06/20/23 09:21 Dose: 1 mg Benzocaine (Benzocaine 20 % Oral Gel 9 Gm Tube) 1 appl MUCOUS MEM QID PRN; Protocol PRN Reason: dental pain Last Admin: 06/21/23 20:34 Dose: 1 appl Fluticasone Propionate (Fluticasone Propionate Nasal 16 Gm [place]) 1 spray NOSTRIL-B DAILY [facility] Last Admin: 06/26/23 08:31 Dose: Not Given Hydroxyzine HCl (Hydroxyzine Hcl 25 Mg Tablet) 25 mg PO Q6H PRN PRN Reason: Anxiety Last Admin: 06/23/23 21:00 Dose: 25 mg [place] Carbonate ([place] Carbonate Er 450 Mg Tablet.Er) 450 mg PO BID [facility] Last Admin: 06/26/23 08:31 Dose: 450 mg Lorazepam (Lorazepam 0.5 Mg Tablet) 0.5 mg PO TID [facility] Last Admin: 06/26/23 08:31 Dose: 0.5 mg Magnesium Hydroxide (Milk Of Magnesia 30 Ml Oral.Susp) 30 ml PO DAILY PRN PRN Reason: Constipation Nicotine Polacrilex (Nicotine Polacrilex 2 Mg Gum) 4 mg BUCCAL Q2H PRN PRN Reason: Nicotine Cravings Olanzapine (Olanzapine 10 Mg Tablet) 10 mg PO BEDTIME [facility] Last Admin: 06/25/23 20:23 Dose: 10 mg Ondansetron HCl (Ondansetron Odt 4 Mg Tab.Rapdis) 4 mg TRANSLINGU Q8H PRN PRN Reason: Nausea and Vomiting Trazodone HCl (Trazodone Hcl 50 Mg Tablet) 50 mg PO BEDTIME PRN PRN Reason: Insomnia Allergies Allergies Allergy/AdvReac Type Severity Reaction Status Date / Time Unable to Assess Allergy Verified 06/19/23 14:18 Assessment & Plan Assessment & Plan (1) Bipolar I disorder with conor: Status: Acute Code(s): F31.10 - Bipolar disorder, current episode manic without psychotic features, unspecified Plan 1) conor - DC caplyta 42, add zyprexa 10 QHS 06/20. start lithium per pt request 06/20. taper and DC lamictal and trileptal as not evidence-based mood stabilizers and not indicated in the present clinical context. 06/21 decrease HS zyprexa from 10 mg to 5 mg QHS after pt c/o sedation. DCed lamictal 06/23. seems to have slowed down much by 06/23, appearing nearly catatonic as of 06/24. increased HS zyprexa back to 10 mg as of 06/24, started ativan 0.5 TID for guard against worsening catatonia. check lithium level and labs 06/25, provide pt with benzo prep for blood draw as she is severely needle-phobic. 2) cancer - per collateral from pt's , DC anastrozole 06/20 on the word of Dr. Kign, [place]ologist [place] [facility] [place] is concerned the hormonal aspect of the medication may be complicating matters. 06/25 continues to present with adventism delusions and psychosis, fearful due to VH of devil and guarded. She is not fully mute or with blank stare or waxy flexibility. will continue ativan as is. Will dc trileptal per plan to keep only on lithium. may consider different antipsychotic if too sedated with olanzapine or more sensitive to anticholigergic properties of the medications. 06/26- will try higher potency antipsychotic like risperidone 1mg po BID, may be more effective given severity of symptoms. will continue to monitor s/s of catatonia, no overt mutism, or blank stare, or waxy flexibility, pt isolated but suspect this due to hypervigilant and fearfulness s/s delusions and psychosis. continue ativan tid Reason for continued inpatient stay Substantial Risk for: inability to function Time Spent With Patient Time: Total time managing care of this patient today ____ minutes.
[2023-06-26] MEDS: risperiDONE 1 MG TABLET PO ×2 (12:47→22:29)
[2023-06-26 20:05] VITALS: BP 103/51; PULSE 77; RESP 16; TEMP 36.9; O2SAT 95
[2023-06-26] MEDS: OLANZapine 10 MG TABLET PO (22:29)
[2023-06-27] MEDS: hydrOXYzine HCL 25 MG TABLET PO (01:09)
[2023-06-27 07:30] VITALS: BP 110/53; PULSE 54; RESP 14; TEMP 36.3; O2SAT 95
[2023-06-27] MEDS: LORazepam 0.5 MG TABLET PO ×2 (09:02→21:11)
[2023-06-27] MEDS: risperiDONE 1 MG TABLET PO ×2 (09:02→21:11)
[2023-06-27] MEDS: Lithium Carbonate ER 450 MG TABLET.ER PO ×2 (09:02→21:11)
--- NOTE | 2023-06-27 09:37 | P.PNPSI_ITS ---
Subjective Subjective Date of Service: 06/27/23 Reason For Visit: Psychosis Subjective Notes: Conditional Voluntary Interim History: Pt slightly more visible, at times goes out to eat. She continues to report messages from God, still disturbing images of devil. She reports feeling tired. She had some difficulty sleeping last night but did receive atarax with good effect. Review of Systems Review of Systems Slight nausea, no vomiting Patient otherwise has no acute medical complaints at this time Mental Status Exam Mental Status Exam Narrative: Appearance: wearing hospital gown, face covered with blanket but uncovered as I asked to do so. Behavior: somewhat guarded but cooperative Speech: mostly clear, no significant delayed in responses, spontaneous Psychomotor: no agitation, some retardation TP: mostly linear TC: voodoo delusions, paranoid delusions Mood: very tired ' Affect: congruent, fearful SI: none HI: none VH/AH: voices of God, visual hallucinations of devil which pt describes as terrifying Delusions: voodoo/persecutory delusions Insight/judgment: fair x 2 memory/cog: alert, oriented x 3 Diagnostics Vital Signs (24Hr): Vital Signs - 24 hr 06/26/23 20:05 06/27/23 07:30 Temperature 98.5 F 97.3 F Pulse Rate 77 54 Respiratory Rate 16 14 Blood Pressure 103/51 L 110/53 L Pulse Oximetry 95 95 Oxygen Delivery Method Room Air Room Air BMI result Body Mass Index 23.6 Labs 06/25/23 20:11 Labs: Laboratory Results - last 48 hr 06/25/23 06/25/23 06/25/23 09:10 20:10 20:11 Sodium 139 Potassium 3.5 Chloride 104 Carbon Dioxide 23 Anion Gap 16 BUN 23 H Creatinine 0.70 Estim Creat Clear Calc 79.5 Estimated GFR > 60 Random Glucose 129 H Calcium 10.4 H [place] 0.98 0.98 Medications Medications Current Medications Acetaminophen (Acetaminophen 325 Mg Tablet) 975 mg PO Q6H PRN PRN Reason: Headache/Pain Mild Scale (1-3) Al Hydroxide/Mg Hydroxide (Magnesium Hydrox/Alum Hydrox 30 Ml Oral.Susp) 30 ml PO Q6H PRN PRN Reason: Heartburn/Nausea Alprazolam (Alprazolam 0.5 Mg Tablet) 0.5 mg PO DAILY PRN PRN Reason: anxiety Anastrozole (Anastrozole 1 Mg Tablet) 1 mg PO DAILY [facility] Last Admin: 06/20/23 09:21 Dose: 1 mg Benzocaine (Benzocaine 20 % Oral Gel 9 Gm Tube) 1 appl MUCOUS MEM QID PRN; Protocol PRN Reason: dental pain Last Admin: 06/21/23 20:34 Dose: 1 appl Fluticasone Propionate (Fluticasone Propionate Nasal 16 Gm [place]) 1 spray NOSTRIL-B DAILY [facility] Last Admin: 06/27/23 09:04 Dose: Not Given Hydroxyzine HCl (Hydroxyzine Hcl 25 Mg Tablet) 25 mg PO Q6H PRN PRN Reason: Anxiety Last Admin: 06/27/23 01:09 Dose: 25 mg [place] Carbonate ([place] Carbonate Er 450 Mg Tablet.Er) 450 mg PO BID [facility] Last Admin: 06/27/23 09:02 Dose: 450 mg Lorazepam (Lorazepam 1 Mg Tablet) 1 mg PO TID [facility] Magnesium Hydroxide (Milk Of Magnesia 30 Ml Oral.Susp) 30 ml PO DAILY PRN PRN Reason: Constipation Nicotine Polacrilex (Nicotine Polacrilex 2 Mg Gum) 4 mg BUCCAL Q2H PRN PRN Reason: Nicotine Cravings Ondansetron HCl (Ondansetron Odt 4 Mg Tab.Rapdis) 4 mg TRANSLINGU Q8H PRN PRN Reason: Nausea and Vomiting Risperidone (Risperidone 1 Mg Tablet) 1 mg PO BID [facility] Last Admin: 06/27/23 09:02 Dose: 1 mg Trazodone HCl (Trazodone Hcl 50 Mg Tablet) 50 mg PO BEDTIME PRN PRN Reason: Insomnia Allergies Allergies Allergy/AdvReac Type Severity Reaction Status Date / Time Unable to Assess Allergy Verified 06/19/23 14:18 Assessment & Plan Assessment & Plan (1) Bipolar I disorder with conor: Status: Acute Code(s): F31.10 - Bipolar disorder, current episode manic without psychotic features, unspecified Plan 1) conor - DC caplyta 42, add zyprexa 10 QHS 06/20. start lithium per pt request 06/20. taper and DC lamictal and trileptal as not evidence-based mood stabilizers and not indicated in the present clinical context. 06/21 decrease HS zyprexa from 10 mg to 5 mg QHS after pt c/o sedation. DCed lamictal 06/23. seems to have slowed down much by 06/23, appearing nearly catatonic as of 06/24. increased HS zyprexa back to 10 mg as of 06/24, started ativan 0.5 TID for guard against worsening catatonia. check lithium level and labs 06/25, provide pt with benzo prep for blood draw as she is severely needle-phobic. 2) cancer - per collateral from pt's , DC anastrozole 06/20 on the word of Dr. King, pt's oncologist at [facility] King is concerned the hormonal aspect of the medication may be complicating matters. 06/25 continues to present with voodoo delusions and psychosis, fearful due to VH of devil and guarded. She is not fully mute or with blank stare or waxy flexibility. will continue ativan as is. Will dc trileptal per plan to keep only on lithium. may consider different antipsychotic if too sedated with olanzapine or more sensitive to anticholigergic properties of the medications. 06/26- will try higher potency antipsychotic like risperidone 1mg po BID, may be more effective given severity of symptoms. will continue to monitor s/s of catatonia, no overt mutism, or blank stare, or waxy flexibility, pt isolated but suspect this due to hypervigilant and fearfulness s/s delusions and psychosis. continue ativan tid 06/27 continue risperidone 1mg po BID- d/c olanzapine. continue ativan 0.5mg po TID-monitor catatonia like s/s. Reason for continued inpatient stay Substantial Risk for: inability to function Time Spent With Patient Time: Total time managing care of this patient today ____ minutes.
[2023-06-27] MEDS: LORazepam 1 MG TABLET PO (10:20)
[2023-06-27 20:45] VITALS: BP 110/49; PULSE 77; RESP 17; TEMP 36.7; O2SAT 94
--- NOTE | 2023-06-28 08:06 | HO.PSYCHPN ---
Subjective Subjective Date of Service: 06/28/23 Reason For Visit: Psychosis Subjective Notes: Conditional Voluntary Interim History: 52 yo reports feeling pressed down , some complaint of feeling a bit off kilter and imbalance of gait- legs restless- sibling called about pt and reported some hx of lithium causing RLS in past Pt is not so sure about that- She reports being very sensitive to medications in general - Other than that vague quality to patient's speech and behavior- Medication Compliance: Yes Side effects from medications: Yes (?restlessness, though doesn't appear akasthetic) Attending Groups: Intermittent Review of Systems Acute medical concerns: No Medical Review of Systems: unchanged Mental Status Exam Mental Status Exam Patient Appearance: Disheveled Patient Orientation: Person, Place and Situation Level of Consciousness: Awake Patient Behavior: Passive, Wandering and Anxious Mood Description: Apprehensive Affect Description: Blunted Patient Cognition Impaired: No Ability to Follow Directions: Fair Speech Pattern: Impoverished and Delayed Delusions: Bizarre Thought Process: Distracted and Confusion Thought Content: positive for Slowed Thinking and positive for Disorganized Depressive Symptoms: Increased Anxiety, Diff. Making Decisions, Muscle Tension and Difficulty Concentrating Abnormal Motor Activity Signs and Symptoms: Restlessness Judgement: Poor Diagnostics Vital Signs (24Hr): Vital Signs - 24 hr 06/27/23 20:45 Temperature 98.1 F Pulse Rate 77 Respiratory Rate 17 Blood Pressure 110/49 L Pulse Oximetry 94 Oxygen Delivery Method Room Air BMI result Body Mass Index 23.6 Labs 06/25/23 20:11 Medications Medications Current Medications Acetaminophen (Acetaminophen 325 Mg Tablet) 975 mg PO Q6H PRN PRN Reason: Headache/Pain Mild Scale (1-3) Al Hydroxide/Mg Hydroxide (Magnesium Hydrox/Alum Hydrox 30 Ml Oral.Susp) 30 ml PO Q6H PRN PRN Reason: Heartburn/Nausea Alprazolam (Alprazolam 0.5 Mg Tablet) 0.5 mg PO DAILY PRN PRN Reason: anxiety Anastrozole (Anastrozole 1 Mg Tablet) 1 mg PO DAILY [facility] Last Admin: 06/20/23 09:21 Dose: 1 mg Benzocaine (Benzocaine 20 % Oral Gel 9 Gm Tube) 1 appl MUCOUS MEM QID PRN; Protocol PRN Reason: dental pain Last Admin: 06/21/23 20:34 Dose: 1 appl Fluticasone Propionate (Fluticasone Propionate Nasal 16 Gm [place]) 1 spray NOSTRIL-B DAILY [facility] Last Admin: 06/27/23 09:04 Dose: Not Given Hydroxyzine HCl (Hydroxyzine Hcl 25 Mg Tablet) 25 mg PO Q6H PRN PRN Reason: Anxiety Last Admin: 06/27/23 01:09 Dose: 25 mg [place] Carbonate ([place] Carbonate Er 450 Mg Tablet.Er) 450 mg PO BID [facility] Last Admin: 06/27/23 21:11 Dose: 450 mg Lorazepam (Lorazepam 0.5 Mg Tablet) 0.5 mg PO TID [facility] Last Admin: 06/27/23 21:11 Dose: 0.5 mg Magnesium Hydroxide (Milk Of Magnesia 30 Ml Oral.Susp) 30 ml PO DAILY PRN PRN Reason: Constipation Nicotine Polacrilex (Nicotine Polacrilex 2 Mg Gum) 4 mg BUCCAL Q2H PRN PRN Reason: Nicotine Cravings Ondansetron HCl (Ondansetron Odt 4 Mg Tab.Rapdis) 4 mg TRANSLINGU Q8H PRN PRN Reason: Nausea and Vomiting Risperidone (Risperidone 1 Mg Tablet) 1 mg PO BID [facility] Last Admin: 06/27/23 21:11 Dose: 1 mg Trazodone HCl (Trazodone Hcl 50 Mg Tablet) 50 mg PO BEDTIME PRN PRN Reason: Insomnia Allergies Allergies Allergy/AdvReac Type Severity Reaction Status Date / Time Unable to Assess Allergy Verified 06/19/23 14:18 Assessment & Plan Assessment & Plan (1) Bipolar I disorder with conor: Status: Acute Code(s): F31.10 - Bipolar disorder, current episode manic without psychotic features, unspecified Plan 1) conor - DC caplyta 42, add zyprexa 10 QHS 06/20. start lithium per pt request 06/20. taper and DC lamictal and trileptal as not evidence-based mood stabilizers and not indicated in the present clinical context. 06/21 decrease HS zyprexa from 10 mg to 5 mg QHS after pt c/o sedation. DCed lamictal 06/23. seems to have slowed down much by 06/23, appearing nearly catatonic as of 06/24. increased HS zyprexa back to 10 mg as of 06/24, started ativan 0.5 TID for guard against worsening catatonia. check lithium level and labs 06/25, provide pt with benzo prep for blood draw as she is severely needle-phobic. 2) cancer - per collateral from pt's , DC anastrozole 06/20 on the word of Dr. King, pt's oncologist at [facility] [place]. Dr. King is concerned the hormonal aspect of the medication may be complicating matters. 06/25 continues to present with yarsani delusions and psychosis, fearful due to VH of devil and guarded. She is not fully mute or with blank stare or waxy flexibility. will continue ativan as is. Will dc trileptal per plan to keep only on lithium. may consider different antipsychotic if too sedated with olanzapine or more sensitive to anticholigergic properties of the medications. 06/26- will try higher potency antipsychotic like risperidone 1mg po BID, may be more effective given severity of symptoms. will continue to monitor s/s of catatonia, no overt mutism, or blank stare, or waxy flexibility, pt isolated but suspect this due to hypervigilant and fearfulness s/s delusions and psychosis. continue ativan tid 06/27 continue risperidone 1mg po BID- d/c olanzapine. continue ativan 0.5mg po TID-monitor catatonia like s/s. 06/28 had meant to lower patient's lithium but she got 450mg bid - will lower to 300/450 tomorrow li lvl been running .98 Patient educated on: medication risk/benefits Informed Consent: further education needed Reason for continued inpatient stay Substantial Risk for: inability to function and rapid decompensation Time Spent With Patient Time: Total time managing care of this patient today ____ minutes.
[2023-06-28 08:35] VITALS: BP 110/54; PULSE 60; RESP 14; TEMP 36.6; O2SAT 95
[2023-06-28] MEDS: LORazepam 0.5 MG TABLET PO ×3 (08:47→21:05)
[2023-06-28] MEDS: risperiDONE 1 MG TABLET PO ×2 (08:47→21:04)
[2023-06-28] MEDS: Lithium Carbonate ER 450 MG TABLET.ER PO ×2 (08:47→17:38)
[2023-06-28 20:00] VITALS: BP 98/53; PULSE 65; RESP 14; TEMP 36.6; O2SAT 95
[2023-06-29 08:41] VITALS: BP 109/56; PULSE 59; RESP 18; TEMP 36.1; O2SAT 98
[2023-06-29] MEDS: LORazepam 0.5 MG TABLET PO ×3 (08:42→20:40)
[2023-06-29] MEDS: risperiDONE 1 MG TABLET PO (08:42)
--- NOTE | 2023-06-29 12:49 | HO.PSYCHPN ---
Subjective Subjective Date of Service: 06/29/23 Reason For Visit: Psychosis Subjective Notes: Conditional Voluntary Medical Problems Affecting Mental Status: No Interim History: 52 with psychotic episode- lying in bed this am - tired though reportedly slept last pm- blunted, withdrawn and guarded- nursing reports patient was not orthostatic- she has distracted thinking and was worried about god and the devil- Medication Compliance: Yes Side effects from medications: No (pt unsure what is causing what for her) Attending Groups: No Review of Systems Acute medical concerns: No Medical Review of Systems: unchanged Mental Status Exam Mental Status Exam Narrative: lying in bed, staring, Patient Appearance: Unkempt and Rigid Patient Orientation: Person and Place Level of Consciousness: Awake and Drowsy (or tired) Patient Behavior: Passive and Confused Mood Description: Apprehensive Affect Description: Constricted Patient Cognition Impaired: No Ability to Follow Directions: Fair Speech Pattern: Mumbled Thought Process: Distracted and Confusion Thought Content: positive for Thought Blocking Depressive Symptoms: Diff. Making Decisions and Increased Fatigue Judgement: Poor Diagnostics Vital Signs (24Hr): Vital Signs - 24 hr 06/28/23 20:00 06/29/23 08:41 Temperature 97.8 F 96.9 F Pulse Rate 65 59 Respiratory Rate 14 18 Blood Pressure 98/53 L 109/56 L Pulse Oximetry 95 98 Oxygen Delivery Method Room Air Room Air BMI result Body Mass Index 23.6 Labs 06/25/23 20:11 Medications Medications Current Medications Acetaminophen (Acetaminophen 325 Mg Tablet) 975 mg PO Q6H PRN PRN Reason: Headache/Pain Mild Scale (1-3) Al Hydroxide/Mg Hydroxide (Magnesium Hydrox/Alum Hydrox 30 Ml Oral.Susp) 30 ml PO Q6H PRN PRN Reason: Heartburn/Nausea Anastrozole (Anastrozole 1 Mg Tablet) 1 mg PO DAILY [facility] Last Admin: 06/20/23 09:21 Dose: 1 mg Benzocaine (Benzocaine 20 % Oral Gel 9 Gm Tube) 1 appl MUCOUS MEM QID PRN; Protocol PRN Reason: dental pain Last Admin: 06/21/23 20:34 Dose: 1 appl Fluticasone Propionate (Fluticasone Propionate Nasal 16 Gm [place]) 1 spray NOSTRIL-B DAILY [facility] Last Admin: 06/29/23 08:44 Dose: Not Given Hydroxyzine HCl (Hydroxyzine Hcl 25 Mg Tablet) 25 mg PO Q6H PRN PRN Reason: Anxiety Last Admin: 06/27/23 01:09 Dose: 25 mg [place] Carbonate ([place] Carbonate Er 300 Mg Tablet.Er) 300 mg PO BID [facility] Lorazepam (Lorazepam 0.5 Mg Tablet) 0.5 mg PO TID [facility] Last Admin: 06/29/23 08:42 Dose: 0.5 mg Magnesium Hydroxide (Milk Of Magnesia 30 Ml Oral.Susp) 30 ml PO DAILY PRN PRN Reason: Constipation Nicotine Polacrilex (Nicotine Polacrilex 2 Mg Gum) 4 mg BUCCAL Q2H PRN PRN Reason: Nicotine Cravings Ondansetron HCl (Ondansetron Odt 4 Mg Tab.Rapdis) 4 mg TRANSLINGU Q8H PRN PRN Reason: Nausea and Vomiting Risperidone (Risperidone 1 Mg Tablet) 1 mg PO BID [facility] Last Admin: 06/29/23 08:42 Dose: 1 mg Trazodone HCl (Trazodone Hcl 50 Mg Tablet) 50 mg PO BEDTIME PRN PRN Reason: Insomnia Allergies Allergies Allergy/AdvReac Type Severity Reaction Status Date / Time Unable to Assess Allergy Verified 06/19/23 14:18 Assessment & Plan Assessment & Plan (1) Bipolar I disorder with conor: Status: Acute Code(s): F31.10 - Bipolar disorder, current episode manic without psychotic features, unspecified Plan 1) conor - DC caplyta 42, add zyprexa 10 QHS 06/20. start lithium per pt request 06/20. taper and DC lamictal and trileptal as not evidence-based mood stabilizers and not indicated in the present clinical context. 06/21 decrease HS zyprexa from 10 mg to 5 mg QHS after pt c/o sedation. DCed lamictal 06/23. seems to have slowed down much by 06/23, appearing nearly catatonic as of 06/24. increased HS zyprexa back to 10 mg as of 06/24, started ativan 0.5 TID for guard against worsening catatonia. check lithium level and labs 06/25, provide pt with benzo prep for blood draw as she is severely needle-phobic. 2) cancer - per collateral from pt's , DC anastrozole 06/20 on the word of Dr. King, pt's oncologist at [facility] [place]. [place]. King is concerned the hormonal aspect of the medication may be complicating matters. 06/25 continues to present with sabianist delusions and psychosis, fearful due to VH of devil and guarded. She is not fully mute or with blank stare or waxy flexibility. will continue ativan as is. Will dc trileptal per plan to keep only on lithium. may consider different antipsychotic if too sedated with olanzapine or more sensitive to anticholigergic properties of the medications. 06/26- will try higher potency antipsychotic like risperidone 1mg po BID, may be more effective given severity of symptoms. will continue to monitor s/s of catatonia, no overt mutism, or blank stare, or waxy flexibility, pt isolated but suspect this due to hypervigilant and fearfulness s/s delusions and psychosis. continue ativan tid 06/27 continue risperidone 1mg po BID- d/c olanzapine. continue ativan 0.5mg po TID-monitor catatonia like s/s. 06/28 had meant to lower patient's lithium but she got 450mg bid - will lower to 300/450 tomorrow li lvl been running .98 06/29 I held am dose of lithium and restarted with pm dose of 450mg , will be on total 750mg/day (intead of 900mg) pt also agreed to inc risperidone 1.5mg bid , but instead keeping her at 1mg in am and inc pm dose to 2mg Patient educated on: medication risk/benefits Informed Consent: understands and further education needed Reason for continued inpatient stay Substantial Risk for: inability to function and rapid decompensation Time Spent With Patient Time: Total time managing care of this patient today ____ minutes.
[2023-06-29 20:00] VITALS: BP 188/69; PULSE 90; RESP 16; TEMP 36.6; O2SAT 96
[2023-06-29 20:36] VITALS: BP 109/56; PULSE 70; RESP 16; O2SAT 99
[2023-06-29] MEDS: Lithium Carbonate ER 450 MG TABLET.ER PO (20:40)
[2023-06-29] MEDS: risperiDONE 2 MG TABLET PO (20:40)
[2023-06-30 08:43] VITALS: BP 122/63; PULSE 76; RESP 18; TEMP 36.3; O2SAT 96
[2023-06-30] MEDS: LORazepam 0.5 MG TABLET PO ×3 (08:44→20:42)
[2023-06-30] MEDS: risperiDONE 1 MG TABLET PO (08:45)
[2023-06-30] MEDS: Lithium Carbonate ER 300 MG TABLET.ER PO (08:45)
--- NOTE | 2023-06-30 12:33 | HO.PSYCHPN ---
Subjective Subjective Date of Service: 06/30/23 Reason For Visit: Psychosis Subjective Notes: Conditional Voluntary Interim History: 52 with vague somatic complaints, unclear what helps or what bothers her- again co of dizziness again got orthostatics- pt did have higher risperidone 2mg last pm - today i decreased to 1.5mg = lithium 750mg/day likely just needs more time on these meds Medication Compliance: Yes Attending Groups: No Review of Systems Acute medical concerns: No Medical Review of Systems: unchanged Mental Status Exam Mental Status Exam Narrative: lying in bed, staring, Patient Appearance: Unkempt and Rigid Patient Orientation: Person and Place Level of Consciousness: Awake and Drowsy (or tired) Patient Behavior: Passive and Confused Mood Description: Apprehensive Affect Description: Constricted Patient Cognition Impaired: No Ability to Follow Directions: Fair Speech Pattern: Mumbled Thought Process: Distracted and Confusion Thought Content: positive for Thought Blocking Depressive Symptoms: Diff. Making Decisions and Increased Fatigue Judgement: Poor Diagnostics Vital Signs (24Hr): Vital Signs - 24 hr 06/29/23 20:00 06/29/23 20:36 06/30/23 08:43 Temperature 97.9 F 97.3 F Pulse Rate 90 70 76 Respiratory Rate 16 16 18 Blood Pressure 188/69 H 109/56 L 122/63 Pulse Oximetry 96 99 96 Oxygen Delivery Method Room Air Room Air Room Air BMI result Body Mass Index 23.6 Labs 06/25/23 20:11 Medications Medications Current Medications Acetaminophen (Acetaminophen 325 Mg Tablet) 975 mg PO Q6H PRN PRN Reason: Headache/Pain Mild Scale (1-3) Al Hydroxide/Mg Hydroxide (Magnesium Hydrox/Alum Hydrox 30 Ml Oral.Susp) 30 ml PO Q6H PRN PRN Reason: Heartburn/Nausea Anastrozole (Anastrozole 1 Mg Tablet) 1 mg PO DAILY [facility] Last Admin: 06/20/23 09:21 Dose: 1 mg Benzocaine (Benzocaine 20 % Oral Gel 9 Gm Tube) 1 appl MUCOUS MEM QID PRN; Protocol PRN Reason: dental pain Last Admin: 06/21/23 20:34 Dose: 1 appl Fluticasone Propionate (Fluticasone Propionate Nasal 16 Gm [place]) 1 spray NOSTRIL-B DAILY [facility] Last Admin: 06/30/23 08:45 Dose: Not Given Hydroxyzine HCl (Hydroxyzine Hcl 25 Mg Tablet) 25 mg PO Q6H PRN PRN Reason: Anxiety Last Admin: 06/27/23 01:09 Dose: 25 mg [place] Carbonate ([place] Carbonate Er 450 Mg Tablet.Er) 450 mg PO BEDTIME [facility] Last Admin: 06/29/23 20:40 Dose: 450 mg [place] Carbonate ([place] Carbonate Er 300 Mg Tablet.Er) 300 mg PO DAILY [facility] Last Admin: 06/30/23 08:45 Dose: 300 mg Lorazepam (Lorazepam 0.5 Mg Tablet) 0.5 mg PO TID [facility] Last Admin: 06/30/23 08:44 Dose: 0.5 mg Magnesium Hydroxide (Milk Of Magnesia 30 Ml Oral.Susp) 30 ml PO DAILY PRN PRN Reason: Constipation Nicotine Polacrilex (Nicotine Polacrilex 2 Mg Gum) 4 mg BUCCAL Q2H PRN PRN Reason: Nicotine Cravings Ondansetron HCl (Ondansetron Odt 4 Mg Tab.Rapdis) 4 mg TRANSLINGU Q8H PRN PRN Reason: Nausea and Vomiting Risperidone (Risperidone 1 Mg Tablet) 1 mg PO DAILY [facility] Last Admin: 06/30/23 08:45 Dose: 1 mg Risperidone (Risperidone 2 Mg Tablet) 2 mg PO BEDTIME [facility] Last Admin: 06/29/23 20:40 Dose: 2 mg Trazodone HCl (Trazodone Hcl 50 Mg Tablet) 50 mg PO BEDTIME PRN PRN Reason: Insomnia Allergies Allergies Allergy/AdvReac Type Severity Reaction Status Date / Time Unable to Assess Allergy Verified 06/19/23 14:18 Assessment & Plan Assessment & Plan (1) Bipolar I disorder with conor: Status: Acute Code(s): F31.10 - Bipolar disorder, current episode manic without psychotic features, unspecified Plan 1) conor - DC caplyta 42, add zyprexa 10 QHS 06/20. start lithium per pt request 06/20. taper and DC lamictal and trileptal as not evidence-based mood stabilizers and not indicated in the present clinical context. 06/21 decrease HS zyprexa from 10 mg to 5 mg QHS after pt c/o sedation. DCed lamictal 06/23. seems to have slowed down much by 06/23, appearing nearly catatonic as of 06/24. increased HS zyprexa back to 10 mg as of 06/24, started ativan 0.5 TID for guard against worsening catatonia. check lithium level and labs 06/25, provide pt with benzo prep for blood draw as she is severely needle-phobic. 2) cancer - per collateral from pt's , DC anastrozole 06/20 on the word of Dr. King, pt's oncologist at [facility]. Dr. King is concerned the hormonal aspect of the medication may be complicating matters. 06/25 continues to present with tenriism delusions and psychosis, fearful due to VH of devil and guarded. She is not fully mute or with blank stare or waxy flexibility. will continue ativan as is. Will dc trileptal per plan to keep only on lithium. may consider different antipsychotic if too sedated with olanzapine or more sensitive to anticholigergic properties of the medications. 06/26- will try higher potency antipsychotic like risperidone 1mg po BID, may be more effective given severity of symptoms. will continue to monitor s/s of catatonia, no overt mutism, or blank stare, or waxy flexibility, pt isolated but suspect this due to hypervigilant and fearfulness s/s delusions and psychosis. continue ativan tid 06/27 continue risperidone 1mg po BID- d/c olanzapine. continue ativan 0.5mg po TID-monitor catatonia like s/s. 06/28 had meant to lower patient's lithium but she got 450mg bid - will lower to 300/450 tomorrow li lvl been running .98 06/29 I held am dose of lithium and restarted with pm dose of 450mg , will be on total 750mg/day (intead of 900mg) pt also agreed to inc risperidone 1.5mg bid , but instead keeping her at 1mg in am and inc pm dose to 2mg 06/30/23 slight lower of risperidone to 1.5mg at night- see if less fatigued in am - continue 750mg of lithium check lvl tomorrow- said didn't know there would be so much blood tests hasn't had one in 4 days Patient educated on: diagnosis and medication risk/benefits Informed Consent: further education needed Reason for continued inpatient stay Substantial Risk for: inability to function and rapid decompensation Time Spent With Patient Time: Total time managing care of this patient today ____ minutes.
--- NOTE | 2023-06-30 17:30 | PC.NURSE ---
Orthostatic BP taken due to c/o feeling dizzy L 107/56 HR 70 Sit 119/59 HR 82 Stand 115/56 HR 99
[2023-06-30 18:00] VITALS: BP 125/85; PULSE 72; RESP 16; TEMP 36.8; O2SAT 96
[2023-06-30] MEDS: risperiDONE 0.5 MG TABLET 1.5 MG PO (20:42)
[2023-06-30] MEDS: Lithium Carbonate ER 450 MG TABLET.ER PO (20:42)
[2023-07-01 09:45] VITALS: BP 116/71; PULSE 75; RESP 14; TEMP 36.5; O2SAT 96
[2023-07-01] MEDS: risperiDONE 1 MG TABLET PO (09:54)
[2023-07-01] MEDS: Lithium Carbonate ER 300 MG TABLET.ER PO (09:54)
[2023-07-01] MEDS: LORazepam 0.5 MG TABLET PO ×2 (09:54→20:45)
--- NOTE | 2023-07-01 15:17 | HO.PSYCHPN ---
Subjective Subjective Date of Service: 07/01/23 Reason For Visit: Psychosis Interim History: more fluid and easily engaged than last time i saw pt about a week ago. remains a bit slowed, but able to properly interact with interviewer. c/o feeling tired, MD agrees to begin taper of ativan and to switch risperidone to HS. pt asks if MD will call . per staff, confused, withdrawn. feeling lost. Mental Status Exam Mental Status Exam Narrative: dressed in street clothes, adequately groomed. cooperative. no PMA/PMR. speech soft, decr rate, amount. decr prosody. incr latency. thoughts linear and logical. affect constricted, hypo-intense, non-labile. mood not assessed. no SI/SIBI/HI/AVH expressed. Diagnostics Vital Signs (24Hr): Vital Signs - 24 hr 06/30/23 18:00 07/01/23 09:45 Temperature 98.2 F 97.7 F Pulse Rate 72 75 Respiratory Rate 16 14 Blood Pressure 125/85 116/71 Pulse Oximetry 96 96 Oxygen Delivery Method Room Air Room Air BMI result Body Mass Index 23.6 Labs 06/25/23 20:11 Medications Medications Current Medications Acetaminophen (Acetaminophen 325 Mg Tablet) 975 mg PO Q6H PRN PRN Reason: Headache/Pain Mild Scale (1-3) Al Hydroxide/Mg Hydroxide (Magnesium Hydrox/Alum Hydrox 30 Ml Oral.Susp) 30 ml PO Q6H PRN PRN Reason: Heartburn/Nausea Anastrozole (Anastrozole 1 Mg Tablet) 1 mg PO DAILY [facility] Last Admin: 06/20/23 09:21 Dose: 1 mg Benzocaine (Benzocaine 20 % Oral Gel 9 Gm Tube) 1 appl MUCOUS MEM QID PRN; Protocol PRN Reason: dental pain Last Admin: 06/21/23 20:34 Dose: 1 appl Fluticasone Propionate (Fluticasone Propionate Nasal 16 Gm [place]) 1 spray NOSTRIL-B DAILY [facility] Last Admin: 07/01/23 09:52 Dose: Not Given Hydroxyzine HCl (Hydroxyzine Hcl 25 Mg Tablet) 25 mg PO Q6H PRN PRN Reason: Anxiety Last Admin: 06/27/23 01:09 Dose: 25 mg [place] Carbonate ([place] Carbonate Er 450 Mg Tablet.Er) 450 mg PO BEDTIME [facility] Last Admin: 06/30/23 20:42 Dose: 450 mg [place] Carbonate ([place] Carbonate Er 300 Mg Tablet.Er) 300 mg PO DAILY [facility] Last Admin: 07/01/23 09:54 Dose: 300 mg Lorazepam (Lorazepam 0.5 Mg Tablet) 0.5 mg PO BID [facility] Magnesium Hydroxide (Milk Of Magnesia 30 Ml Oral.Susp) 30 ml PO DAILY PRN PRN Reason: Constipation Nicotine Polacrilex (Nicotine Polacrilex 2 Mg Gum) 4 mg BUCCAL Q2H PRN PRN Reason: Nicotine Cravings Ondansetron HCl (Ondansetron Odt 4 Mg Tab.Rapdis) 4 mg TRANSLINGU Q8H PRN PRN Reason: Nausea and Vomiting Risperidone (Risperidone 0.5 Mg Tablet) 1.5 mg PO BEDTIME [facility] Stop: 07/01/23 21:01 Last Admin: 06/30/23 20:42 Dose: 1.5 mg Risperidone (Risperidone 0.5 Mg Tablet) 2.5 mg PO BEDTIME [facility] Trazodone HCl (Trazodone Hcl 50 Mg Tablet) 50 mg PO BEDTIME PRN PRN Reason: Insomnia Allergies Allergies Allergy/AdvReac Type Severity Reaction Status Date / Time Unable to Assess Allergy Verified 06/19/23 14:18 Assessment & Plan Assessment & Plan (1) Bipolar I disorder with conor: Status: Acute Code(s): F31.10 - Bipolar disorder, current episode manic without psychotic features, unspecified Plan 1) conor - DC caplyta 42, add zyprexa 10 QHS 06/20. start lithium per pt request 06/20. taper and DC lamictal and trileptal as not evidence-based mood stabilizers and not indicated in the present clinical context. 06/21 decrease HS zyprexa from 10 mg to 5 mg QHS after pt c/o sedation. DCed lamictal 06/23. seems to have slowed down much by 06/23, appearing nearly catatonic as of 06/24. increased HS zyprexa back to 10 mg as of 06/24, started ativan 0.5 TID for guard against worsening catatonia. check lithium level and labs 06/25, provide pt with benzo prep for blood draw as she is severely needle-phobic. 2) cancer - per collateral from pt's , DC anastrozole 06/20 on the word of Dr. Kign, pt's oncologist at [facility]. Dr. King is concerned the hormonal aspect of the medication may be complicating matters. 06/25 continues to present with orthodoxy delusions and psychosis, fearful due to VH of devil and guarded. She is not fully mute or with blank stare or waxy flexibility. will continue ativan as is. Will dc trileptal per plan to keep only on lithium. may consider different antipsychotic if too sedated with olanzapine or more sensitive to anticholigergic properties of the medications. 06/26- will try higher potency antipsychotic like risperidone 1mg po BID, may be more effective given severity of symptoms. will continue to monitor s/s of catatonia, no overt mutism, or blank stare, or waxy flexibility, pt isolated but suspect this due to hypervigilant and fearfulness s/s delusions and psychosis. continue ativan tid 06/27 continue risperidone 1mg po BID- d/c olanzapine. continue ativan 0.5mg po TID-monitor catatonia like s/s. 06/28 had meant to lower patient's lithium but she got 450mg bid - will lower to 300/450 tomorrow li lvl been running .98 06/29 I held am dose of lithium and restarted with pm dose of 450mg , will be on total 750mg/day (intead of 900mg) pt also agreed to inc risperidone 1.5mg bid , but instead keeping her at 1mg in am and inc pm dose to 2mg 06/30/23 slight lower of risperidone to 1.5mg at night- see if less fatigued in am - continue 750mg of lithium check lvl tomorrow- said didn't know there would be so much blood tests hasn't had one in 4 days. 1/2: no longer appearing catatonic, reasonably interactive. fatigue continues, agreeable to taper ativan and switch all risperidone to HS. will get 1.5 mg tonight, then none in the morning, then 2.5 mg QHS as of tomorrow night. decrease ativan 0.5 TID to 0.5 BID. will need to recheck lithium level this or friday. case d/w . Reason for continued inpatient stay Substantial Risk for: inability to function and rapid decompensation Time Spent With Patient Time: Total time managing care of this patient today _35___ minutes.
[2023-07-01] MEDS: Lithium Carbonate ER 450 MG TABLET.ER PO (20:45)
[2023-07-01] MEDS: risperiDONE 0.5 MG TABLET 1.5 MG PO (20:45)
[2023-07-01 21:15] VITALS: BP 102/52; PULSE 68; RESP 16; TEMP 36.2; O2SAT 94
[2023-07-02 08:42] VITALS: BP 106/54; PULSE 59; RESP 16; TEMP 36.3; O2SAT 97
[2023-07-02] MEDS: LORazepam 0.5 MG TABLET PO (08:55)
[2023-07-02] MEDS: Lithium Carbonate ER 300 MG TABLET.ER PO (08:55)
--- NOTE | 2023-07-02 16:51 | HO.PSYCHPN ---
Subjective Subjective Date of Service: 07/02/23 Reason For Visit: Psychosis Interim History: calm, cooperative. increasingly interactive, more affectively flexible. re[prts she slept well overnight and showered this morning. still tired but better than yesterday. per staff, adequate PO intake. guarded, flat. not attending groups. appears depressed. denies Sx. Mental Status Exam Mental Status Exam Narrative: dressed in street clothes, adequately groomed. cooperative. no PMA/PMR. speech soft, decr rate, amount. decr prosody. incr latency. thoughts linear and logical. affect with some flexibility, hypo-intense, non-labile. mood not assessed. no SI/SIBI/HI/AVH expressed. Diagnostics Vital Signs (24Hr): Vital Signs - 24 hr 07/01/23 21:15 07/02/23 08:42 Temperature 97.2 F 97.3 F Pulse Rate 68 59 Respiratory Rate 16 16 Blood Pressure 102/52 L 106/54 L Pulse Oximetry 94 97 Oxygen Delivery Method Room Air Room Air BMI result Body Mass Index 23.6 Labs 06/25/23 20:11 Medications Medications Current Medications Acetaminophen (Acetaminophen 325 Mg Tablet) 975 mg PO Q6H PRN PRN Reason: Headache/Pain Mild Scale (1-3) Al Hydroxide/Mg Hydroxide (Magnesium Hydrox/Alum Hydrox 30 Ml Oral.Susp) 30 ml PO Q6H PRN PRN Reason: Heartburn/Nausea Anastrozole (Anastrozole 1 Mg Tablet) 1 mg PO DAILY [facility] Last Admin: 06/20/23 09:21 Dose: 1 mg Benzocaine (Benzocaine 20 % Oral Gel 9 Gm Tube) 1 appl MUCOUS MEM QID PRN; Protocol PRN Reason: dental pain Last Admin: 06/21/23 20:34 Dose: 1 appl Fluticasone Propionate (Fluticasone Propionate Nasal 16 Gm [place]) 1 spray NOSTRIL-B DAILY [facility] Last Admin: 07/02/23 08:59 Dose: Not Given Hydroxyzine HCl (Hydroxyzine Hcl 25 Mg Tablet) 25 mg PO Q6H PRN PRN Reason: Anxiety Last Admin: 06/27/23 01:09 Dose: 25 mg [place] Carbonate ([place] Carbonate Er 450 Mg Tablet.Er) 450 mg PO BEDTIME [facility] Last Admin: 07/01/23 20:45 Dose: 450 mg [place] Carbonate ([place] Carbonate Er 300 Mg Tablet.Er) 300 mg PO DAILY [facility] Last Admin: 07/02/23 08:55 Dose: 300 mg Lorazepam (Lorazepam 0.5 Mg Tablet) 0.5 mg PO BEDTIME [facility] Magnesium Hydroxide (Milk Of Magnesia 30 Ml Oral.Susp) 30 ml PO DAILY PRN PRN Reason: Constipation Nicotine Polacrilex (Nicotine Polacrilex 2 Mg Gum) 4 mg BUCCAL Q2H PRN PRN Reason: Nicotine Cravings Ondansetron HCl (Ondansetron Odt 4 Mg Tab.Rapdis) 4 mg TRANSLINGU Q8H PRN PRN Reason: Nausea and Vomiting Risperidone (Risperidone 0.5 Mg Tablet) 2.5 mg PO BEDTIME [facility] Trazodone HCl (Trazodone Hcl 50 Mg Tablet) 50 mg PO BEDTIME PRN PRN Reason: Insomnia Allergies Allergies Allergy/AdvReac Type Severity Reaction Status Date / Time Unable to Assess Allergy Verified 06/19/23 14:18 Assessment & Plan Assessment & Plan (1) Bipolar I disorder with conor: Status: Acute Code(s): F31.10 - Bipolar disorder, current episode manic without psychotic features, unspecified Plan 1) conor - DC caplyta 42, add zyprexa 10 QHS 06/20. start lithium per pt request 06/20. taper and DC lamictal and trileptal as not evidence-based mood stabilizers and not indicated in the present clinical context. 06/21 decrease HS zyprexa from 10 mg to 5 mg QHS after pt c/o sedation. DCed lamictal 06/23. seems to have slowed down much by 06/23, appearing nearly catatonic as of 06/24. increased HS zyprexa back to 10 mg as of 06/24, started ativan 0.5 TID for guard against worsening catatonia. check lithium level and labs 06/25, provide pt with benzo prep for blood draw as she is severely needle-phobic. 2) cancer - per collateral from pt's , DC anastrozole 06/20 on the word of Dr. King, pt's oncologist at [facility] [place]. Dr. King is concerned the hormonal aspect of the medication may be complicating matters. 06/25 continues to present with druze delusions and psychosis, fearful due to VH of devil and guarded. She is not fully mute or with blank stare or waxy flexibility. will continue ativan as is. Will dc trileptal per plan to keep only on lithium. may consider different antipsychotic if too sedated with olanzapine or more sensitive to anticholigergic properties of the medications. 06/26- will try higher potency antipsychotic like risperidone 1mg po BID, may be more effective given severity of symptoms. will continue to monitor s/s of catatonia, no overt mutism, or blank stare, or waxy flexibility, pt isolated but suspect this due to hypervigilant and fearfulness s/s delusions and psychosis. continue ativan tid 06/27 continue risperidone 1mg po BID- d/c olanzapine. continue ativan 0.5mg po TID-monitor catatonia like s/s. 06/28 had meant to lower patient's lithium but she got 450mg bid - will lower to 300/450 tomorrow li lvl been running .98 06/29 I held am dose of lithium and restarted with pm dose of 450mg , will be on total 750mg/day (intead of 900mg) pt also agreed to inc risperidone 1.5mg bid , but instead keeping her at 1mg in am and inc pm dose to 2mg 06/30/23 slight lower of risperidone to 1.5mg at night- see if less fatigued in am - continue 750mg of lithium check lvl tomorrow- said didn't know there would be so much blood tests hasn't had one in 4 days. 07/01: no longer appearing catatonic, reasonably interactive. fatigue continues, agreeable to taper ativan and switch all risperidone to HS. will get 1.5 mg tonight, then none in the morning, then 2.5 mg QHS as of tomorrow night. decrease ativan 0.5 TID to 0.5 BID. will need to recheck lithium level this or friday. case d/w . 07/02: ativan decreased to 0.5 QHS. improving daily. planning for friday labs. no risperidone this morning, less tired. case D/W pt's sister. Reason for continued inpatient stay Substantial Risk for: inability to function and rapid decompensation Time Spent With Patient Time: Total time managing care of this patient today __35__ minutes.
[2023-07-02 19:50] VITALS: BP 115/66; PULSE 76; RESP 16; TEMP 36.3; O2SAT 97
[2023-07-02] MEDS: Lithium Carbonate ER 450 MG TABLET.ER PO (21:06)
[2023-07-03 07:00] VITALS: BMI 24.1
[2023-07-03 08:23] VITALS: BP 96/52; PULSE 62; RESP 14; TEMP 36.4; O2SAT 96
[2023-07-03] MEDS: Lithium Carbonate ER 300 MG TABLET.ER PO (08:30)
--- NOTE | 2023-07-03 14:38 | HO.PSYCHPN ---
Subjective Subjective Date of Service: 07/03/23 Reason For Visit: Psychosis Interim History: met with pt and . pt smiling, calm, cooperative. reports not sleeping at all last night. discuss treatment plan and discharge date, planning for some time early next week. discuss lab draw for tomorrow. per staff, dep/anx4. +ADLs. taking medications. visible in milieu. slept 4 hours overnight. up since 314 today Mental Status Exam Mental Status Exam Narrative: dressed in street clothes, adequately groomed. cooperative. no PMA/PMR. speech soft, decr rate, amount. decr prosody. incr latency. thoughts linear and logical. affect full range, normo-intense, non-labile. mood improving. no SI/SIBI/HI/AVH expressed. Diagnostics Vital Signs (24Hr): Vital Signs - 24 hr 07/02/23 19:50 07/03/23 08:23 Temperature 97.4 F 97.5 F Pulse Rate 76 62 Respiratory Rate 16 14 Blood Pressure 115/66 96/52 L Pulse Oximetry 97 96 Oxygen Delivery Method Room Air Room Air BMI result Body Mass Index 24.1 Labs 06/25/23 20:11 Medications Medications Current Medications Acetaminophen (Acetaminophen 325 Mg Tablet) 975 mg PO Q6H PRN PRN Reason: Headache/Pain Mild Scale (1-3) Al Hydroxide/Mg Hydroxide (Magnesium Hydrox/Alum Hydrox 30 Ml Oral.Susp) 30 ml PO Q6H PRN PRN Reason: Heartburn/Nausea Alprazolam (Alprazolam 0.25 Mg Tablet) 0.75 mg PO DAILY PRN PRN Reason: needle phobia Anastrozole (Anastrozole 1 Mg Tablet) 1 mg PO DAILY [facility] Last Admin: 06/20/23 09:21 Dose: 1 mg Benzocaine (Benzocaine 20 % Oral Gel 9 Gm Tube) 1 appl MUCOUS MEM QID PRN; Protocol PRN Reason: dental pain Last Admin: 06/21/23 20:34 Dose: 1 appl Diphenhydramine HCl (Diphenhydramine Hcl 25 Mg Capsule) 50 mg PO BEDTIME [facility] Fluticasone Propionate (Fluticasone Propionate Nasal 16 Gm [place]) 1 spray NOSTRIL-B DAILY [facility] Last Admin: 07/03/23 08:33 Dose: Not Given Hydroxyzine HCl (Hydroxyzine Hcl 25 Mg Tablet) 25 mg PO Q6H PRN PRN Reason: Anxiety Last Admin: 06/27/23 01:09 Dose: 25 mg [place] Carbonate ([place] Carbonate Er 450 Mg Tablet.Er) 450 mg PO BEDTIME [facility] Last Admin: 07/02/23 21:06 Dose: 450 mg [place] Carbonate ([place] Carbonate Er 300 Mg Tablet.Er) 300 mg PO DAILY [facility] Last Admin: 07/03/23 08:30 Dose: 300 mg Lorazepam (Lorazepam 1 Mg Tablet) 1 mg PO BEDTIME [facility] Magnesium Hydroxide (Milk Of Magnesia 30 Ml Oral.Susp) 30 ml PO DAILY PRN PRN Reason: Constipation Nicotine Polacrilex (Nicotine Polacrilex 2 Mg Gum) 4 mg BUCCAL Q2H PRN PRN Reason: Nicotine Cravings Ondansetron HCl (Ondansetron Odt 4 Mg Tab.Rapdis) 4 mg TRANSLINGU Q8H PRN PRN Reason: Nausea and Vomiting Risperidone (Risperidone 0.5 Mg Tablet) 2.5 mg PO BEDTIME [facility] Last Admin: 07/02/23 21:04 Dose: 2.5 mg Trazodone HCl (Trazodone Hcl 50 Mg Tablet) 50 mg PO BEDTIME PRN PRN Reason: Insomnia Allergies Allergies Allergy/AdvReac Type Severity Reaction Status Date / Time Unable to Assess Allergy Verified 06/19/23 14:18 Assessment & Plan Assessment & Plan (1) Bipolar I disorder with conor: Status: Acute Code(s): F31.10 - Bipolar disorder, current episode manic without psychotic features, unspecified Plan 1) conor - DC caplyta 42, add zyprexa 10 QHS 06/20. start lithium per pt request 06/20. taper and DC lamictal and trileptal as not evidence-based mood stabilizers and not indicated in the present clinical context. 06/21 decrease HS zyprexa from 10 mg to 5 mg QHS after pt c/o sedation. DCed lamictal 06/23. seems to have slowed down much by 06/23, appearing nearly catatonic as of 06/24. increased HS zyprexa back to 10 mg as of 06/24, started ativan 0.5 TID for guard against worsening catatonia. check lithium level and labs 06/25, provide pt with benzo prep for blood draw as she is severely needle-phobic. 2) cancer - per collateral from pt's , DC anastrozole 06/20 on the word of Dr. King, pt's oncologist at [facility]. Dr. King is concerned the hormonal aspect of the medication may be complicating matters. 06/25 continues to present with jewish delusions and psychosis, fearful due to VH of devil and guarded. She is not fully mute or with blank stare or waxy flexibility. will continue ativan as is. Will dc trileptal per plan to keep only on lithium. may consider different antipsychotic if too sedated with olanzapine or more sensitive to anticholigergic properties of the medications. 06/26- will try higher potency antipsychotic like risperidone 1mg po BID, may be more effective given severity of symptoms. will continue to monitor s/s of catatonia, no overt mutism, or blank stare, or waxy flexibility, pt isolated but suspect this due to hypervigilant and fearfulness s/s delusions and psychosis. continue ativan tid 06/27 continue risperidone 1mg po BID- d/c olanzapine. continue ativan 0.5mg po TID-monitor catatonia like s/s. 06/28 had meant to lower patient's lithium but she got 450mg bid - will lower to 300/450 tomorrow li lvl been running .98 06/29 I held am dose of lithium and restarted with pm dose of 450mg , will be on total 750mg/day (intead of 900mg) pt also agreed to inc risperidone 1.5mg bid , but instead keeping her at 1mg in am and inc pm dose to 2mg 06/30/23 slight lower of risperidone to 1.5mg at night- see if less fatigued in am - continue 750mg of lithium check lvl tomorrow- said didn't know there would be so much blood tests hasn't had one in 4 days. 12: no longer appearing catatonic, reasonably interactive. fatigue continues, agreeable to taper ativan and switch all risperidone to HS. will get 1.5 mg tonight, then none in the morning, then 2.5 mg QHS as of tomorrow night. decrease ativan 0.5 TID to 0.5 BID. will need to recheck lithium level this or friday. case d/w . 07/02: ativan decreased to 0.5 QHS. improving daily. planning for friday labs. no risperidone this morning, less tired. case D/W pt's sister. 07/03: very poor sleep overnight last night, first night with all risperidone (2.5 mg) at HS. return ativan to 1 mg at HS, decrease risperidone to 2 mg, and add benadryl as akathisia prophylaxis to guard against poor sleep. labs in the morning. pre-medicate with xanax. otherwise continue current mgmt. Reason for continued inpatient stay Substantial Risk for: inability to function and rapid decompensation Time Spent With Patient Time: Total time managing care of this patient today __35__ minutes.
[2023-07-03 20:33] VITALS: BP 113/65; PULSE 66; RESP 15; TEMP 36.7; O2SAT 98
[2023-07-03] MEDS: Lithium Carbonate ER 450 MG TABLET.ER PO (21:16)
[2023-07-04 06:00] VITALS: BP 84/49; PULSE 54; RESP 14; TEMP 36.3; O2SAT 97
[2023-07-04 08:13] LABS: Anion Gap 10 (12-20); Blood Urea Nitrogen 14 mg/dL (9-16); Calcium 8.9 mg/dL (8.4-10.2); Carbon Dioxide 28 mmol/L (22-29); Chloride 103 mmol/L (96-108); Estimated Glomerular Filt Rate > 60; Glucose Random 96 mg/dL (60-115); Potassium 3.7 mmol/L (3.3-5.1); Sodium 137 mmol/L (135-145)
[2023-07-04] MEDS: Lithium Carbonate ER 300 MG TABLET.ER PO (09:03)
--- NOTE | 2023-07-04 15:11 | HO.PSYCHPN ---
Subjective Subjective Date of Service: 07/04/23 Reason For Visit: Psychosis Interim History: c/o sedation from xanax this morning. states she slept very well last night as well. agrees to decrease HS regimen. per staff, lithium 0.56. BMP WNL. no anxiety, full range affect but withdrawn. DFA but slept 7 hours. Mental Status Exam Mental Status Exam Narrative: dressed in street clothes, adequately groomed. cooperative. no PMA/PMR. speech soft, decr rate, amount. decr prosody. incr latency. thoughts linear and logical. affect constricted, normo-intense, non-labile. mood improving. no SI/SIBI/HI/AVH expressed. Diagnostics Vital Signs (24Hr): Vital Signs - 24 hr 07/03/23 20:33 07/04/23 06:00 Temperature 98.1 F 97.3 F Pulse Rate 66 54 Respiratory Rate 15 14 Blood Pressure 113/65 84/49 L Pulse Oximetry 98 97 Oxygen Delivery Method Room Air Room Air BMI result Body Mass Index 24.1 Labs 07/04/23 07:46 Labs: Laboratory Results - last 48 hr 07/04/23 07:46 Sodium 137 Potassium 3.7 Chloride 103 Carbon Dioxide 28 Anion Gap 10 L BUN 14 Creatinine 0.58 Estim Creat Clear Calc 96.0 Estimated GFR > 60 Random Glucose 96 Calcium 8.9 D [place] 0.56 L Medications Medications Current Medications Acetaminophen (Acetaminophen 325 Mg Tablet) 975 mg PO Q6H PRN PRN Reason: Headache/Pain Mild Scale (1-3) Al Hydroxide/Mg Hydroxide (Magnesium Hydrox/Alum Hydrox 30 Ml Oral.Susp) 30 ml PO Q6H PRN PRN Reason: Heartburn/Nausea Alprazolam (Alprazolam 0.5 Mg Tablet) 0.5 mg PO DAILY PRN PRN Reason: needle phobia Anastrozole (Anastrozole 1 Mg Tablet) 1 mg PO DAILY [facility] Last Admin: 06/20/23 09:21 Dose: 1 mg Benzocaine (Benzocaine 20 % Oral Gel 9 Gm Tube) 1 appl MUCOUS MEM QID PRN; Protocol PRN Reason: dental pain Last Admin: 06/21/23 20:34 Dose: 1 appl Diphenhydramine HCl (Diphenhydramine Hcl 25 Mg Capsule) 25 mg PO BEDTIME [facility] Fluticasone Propionate (Fluticasone Propionate Nasal 16 Gm [place]) 1 spray NOSTRIL-B DAILY [facility] Last Admin: 07/04/23 09:03 Dose: Not Given Hydroxyzine HCl (Hydroxyzine Hcl 25 Mg Tablet) 25 mg PO Q6H PRN PRN Reason: Anxiety Last Admin: 06/27/23 01:09 Dose: 25 mg [place] Carbonate ([place] Carbonate Er 450 Mg Tablet.Er) 450 mg PO BEDTIME [facility] Last Admin: 07/03/23 21:16 Dose: 450 mg [place] Carbonate ([place] Carbonate Er 300 Mg Tablet.Er) 300 mg PO DAILY [facility] Last Admin: 07/04/23 09:03 Dose: 300 mg Lorazepam (Lorazepam 0.5 Mg Tablet) 0.5 mg PO BEDTIME [facility] Stop: 07/05/23 21:01 Magnesium Hydroxide (Milk Of Magnesia 30 Ml Oral.Susp) 30 ml PO DAILY PRN PRN Reason: Constipation Nicotine Polacrilex (Nicotine Polacrilex 2 Mg Gum) 4 mg BUCCAL Q2H PRN PRN Reason: Nicotine Cravings Ondansetron HCl (Ondansetron Odt 4 Mg Tab.Rapdis) 4 mg TRANSLINGU Q8H PRN PRN Reason: Nausea and Vomiting Risperidone (Risperidone 2 Mg Tablet) 2 mg PO BEDTIME [facility] Last Admin: 07/03/23 21:17 Dose: 2 mg Trazodone HCl (Trazodone Hcl 50 Mg Tablet) 50 mg PO BEDTIME PRN PRN Reason: Insomnia Allergies Allergies Allergy/AdvReac Type Severity Reaction Status Date / Time Unable to Assess Allergy Verified 06/19/23 14:18 Assessment & Plan Assessment & Plan (1) Bipolar I disorder with conor: Status: Acute Code(s): F31.10 - Bipolar disorder, current episode manic without psychotic features, unspecified Plan 1) conor - DC caplyta 42, add zyprexa 10 QHS 06/20. start lithium per pt request 06/20. taper and DC lamictal and trileptal as not evidence-based mood stabilizers and not indicated in the present clinical context. 06/21 decrease HS zyprexa from 10 mg to 5 mg QHS after pt c/o sedation. DCed lamictal 06/23. seems to have slowed down much by 06/23, appearing nearly catatonic as of 06/24. increased HS zyprexa back to 10 mg as of 06/24, started ativan 0.5 TID for guard against worsening catatonia. check lithium level and labs 06/25, provide pt with benzo prep for blood draw as she is severely needle-phobic. 2) cancer - per collateral from pt's , DC anastrozole 06/20 on the word of Dr. King, pt's oncologist at [facility] [place], [place]. Dr. King is concerned the hormonal aspect of the medication may be complicating matters. 06/25 continues to present with nondenominational delusions and psychosis, fearful due to VH of devil and guarded. She is not fully mute or with blank stare or waxy flexibility. will continue ativan as is. Will dc trileptal per plan to keep only on lithium. may consider different antipsychotic if too sedated with olanzapine or more sensitive to anticholigergic properties of the medications. 06/26- will try higher potency antipsychotic like risperidone 1mg po BID, may be more effective given severity of symptoms. will continue to monitor s/s of catatonia, no overt mutism, or blank stare, or waxy flexibility, pt isolated but suspect this due to hypervigilant and fearfulness s/s delusions and psychosis. continue ativan tid 06/27 continue risperidone 1mg po BID- d/c olanzapine. continue ativan 0.5mg po TID-monitor catatonia like s/s. 06/28 had meant to lower patient's lithium but she got 450mg bid - will lower to 300/450 tomorrow li lvl been running .98 06/29 I held am dose of lithium and restarted with pm dose of 450mg , will be on total 750mg/day (intead of 900mg) pt also agreed to inc risperidone 1.5mg bid , but instead keeping her at 1mg in am and inc pm dose to 2mg 06/30/23 slight lower of risperidone to 1.5mg at night- see if less fatigued in am - continue 750mg of lithium check lvl tomorrow- said didn't know there would be so much blood tests hasn't had one in 4 days. 1/2: no longer appearing catatonic, reasonably interactive. fatigue continues, agreeable to taper ativan and switch all risperidone to HS. will get 1.5 mg tonight, then none in the morning, then 2.5 mg QHS as of tomorrow night. decrease ativan 0.5 TID to 0.5 BID. will need to recheck lithium level this or friday. case d/w . 07/02: ativan decreased to 0.5 QHS. improving daily. planning for friday labs. no risperidone this morning, less tired. case D/W pt's sister. 07/03: very poor sleep overnight last night, first night with all risperidone (2.5 mg) at HS. return ativan to 1 mg at HS, decrease risperidone to 2 mg, and add benadryl as akathisia prophylaxis to guard against poor sleep. labs in the morning. pre-medicate with xanax. otherwise continue current mgmt. 07/04: slept well last night, labs drawn. BMP WNL, lithium 0.56. decrease HS ativan to 0.5 mg for next two nights, then DC. decrease HS hydroxyzine to 25 mg from 50 mg. otherwise continue current mgmt. Reason for continued inpatient stay Substantial Risk for: inability to function and rapid decompensation Time Spent With Patient Time: Total time managing care of this patient today __25__ minutes.
[2023-07-04] MEDS: Lithium Carbonate ER 450 MG TABLET.ER PO (21:49)
[2023-07-05 08:27] VITALS: BP 114/58; PULSE 67; RESP 16; TEMP 37; O2SAT 99
[2023-07-05] MEDS: Lithium Carbonate ER 300 MG TABLET.ER PO (08:48)
[2023-07-05] MEDS: Fluticasone Propionate Nasal 16 GM SPRAY 1 SPRAY NOSTRIL-B (08:48)
--- NOTE | 2023-07-05 12:29 | HO.PSYCHPN ---
Subjective Subjective Date of Service: 07/05/23 Reason For Visit: Psychosis Medical Problems Affecting Mental Status: No Interim History: met with patient. Discussed with Nursing. Chart reviewed. Patient reports feeling positive that she is now on lithium. Feels that she is thinking more clearly. Also talked about breast cancer and how she should be having radiation now but the psychosis happened . described her psychotic symptoms including beautiful visions . feels safe on the unit. Getting on well with roommate. Participating in the milieu. Sleep okay. Medication Compliance: Yes Side effects from medications: No Attending Groups: Yes Review of Systems Acute medical concerns: No Review of Systems Review of Systems Unremarkable Mental Status Exam Mental Status Exam Narrative: dressed in street clothes, adequately groomed. cooperative. no PMA/PMR. speech soft, decr rate, amount. thoughts linear and logical. affect constricted, normo-intense, non-labile. mood improving. no SI/SIBI/HI/AVH expressed. Diagnostics Vital Signs (24Hr): Vital Signs - 24 hr 07/05/23 08:27 Temperature 98.6 F Pulse Rate 67 Respiratory Rate 16 Blood Pressure 114/58 L Pulse Oximetry 99 Oxygen Delivery Method Room Air BMI result Body Mass Index 24.1 Labs 07/04/23 07:46 Labs: Laboratory Results - last 48 hr 07/04/23 07:46 Sodium 137 Potassium 3.7 Chloride 103 Carbon Dioxide 28 Anion Gap 10 L BUN 14 Creatinine 0.58 Estim Creat Clear Calc 96.0 Estimated GFR > 60 Random Glucose 96 Calcium 8.9 D [place] 0.56 L Medications Medications Current Medications Acetaminophen (Acetaminophen 325 Mg Tablet) 975 mg PO Q6H PRN PRN Reason: Headache/Pain Mild Scale (1-3) Al Hydroxide/Mg Hydroxide (Magnesium Hydrox/Alum Hydrox 30 Ml Oral.Susp) 30 ml PO Q6H PRN PRN Reason: Heartburn/Nausea Alprazolam (Alprazolam 0.5 Mg Tablet) 0.5 mg PO DAILY PRN PRN Reason: needle phobia Anastrozole (Anastrozole 1 Mg Tablet) 1 mg PO DAILY [facility] Last Admin: 06/20/23 09:21 Dose: 1 mg Benzocaine (Benzocaine 20 % Oral Gel 9 Gm Tube) 1 appl MUCOUS MEM QID PRN; Protocol PRN Reason: dental pain Last Admin: 06/21/23 20:34 Dose: 1 appl Diphenhydramine HCl (Diphenhydramine Hcl 25 Mg Capsule) 25 mg PO BEDTIME [facility] Last Admin: 07/05/23 00:39 Dose: 25 mg Fluticasone Propionate (Fluticasone Propionate Nasal 16 Gm [place]) 1 spray NOSTRIL-B DAILY [facility] Last Admin: 07/05/23 08:48 Dose: 1 spray Hydroxyzine HCl (Hydroxyzine Hcl 25 Mg Tablet) 25 mg PO Q6H PRN PRN Reason: Anxiety Last Admin: 06/27/23 01:09 Dose: 25 mg [place] Carbonate ([place] Carbonate Er 450 Mg Tablet.Er) 450 mg PO BEDTIME [facility] Last Admin: 07/04/23 21:49 Dose: 450 mg [place] Carbonate ([place] Carbonate Er 300 Mg Tablet.Er) 300 mg PO DAILY [facility] Last Admin: 07/05/23 08:48 Dose: 300 mg Lorazepam (Lorazepam 0.5 Mg Tablet) 0.5 mg PO BEDTIME [facility] Stop: 07/05/23 21:01 Last Admin: 07/04/23 21:49 Dose: 0.5 mg Magnesium Hydroxide (Milk Of Magnesia 30 Ml Oral.Susp) 30 ml PO DAILY PRN PRN Reason: Constipation Nicotine Polacrilex (Nicotine Polacrilex 2 Mg Gum) 4 mg BUCCAL Q2H PRN PRN Reason: Nicotine Cravings Ondansetron HCl (Ondansetron Odt 4 Mg Tab.Rapdis) 4 mg TRANSLINGU Q8H PRN PRN Reason: Nausea and Vomiting Risperidone (Risperidone 2 Mg Tablet) 2 mg PO BEDTIME [facility] Last Admin: 07/04/23 21:49 Dose: 2 mg Trazodone HCl (Trazodone Hcl 50 Mg Tablet) 50 mg PO BEDTIME PRN PRN Reason: Insomnia Allergies Allergies Allergy/AdvReac Type Severity Reaction Status Date / Time Unable to Assess Allergy Verified 06/19/23 14:18 Assessment & Plan Assessment & Plan (1) Bipolar I disorder with conor: Status: Acute Code(s): F31.10 - Bipolar disorder, current episode manic without psychotic features, unspecified Plan 1) conor - DC caplyta 42, add zyprexa 10 QHS 06/20. start lithium per pt request 06/20. taper and DC lamictal and trileptal as not evidence-based mood stabilizers and not indicated in the present clinical context. 12/23 decrease HS zyprexa from 10 mg to 5 mg QHS after pt c/o sedation. DCed lamictal 06/23. seems to have slowed down much by 06/23, appearing nearly catatonic as of 06/24. increased HS zyprexa back to 10 mg as of 06/24, started ativan 0.5 TID for guard against worsening catatonia. check lithium level and labs 06/25, provide pt with benzo prep for blood draw as she is severely needle-phobic. 2) cancer - per collateral from pt's , DC anastrozole 06/20 on the word of Dr. King, pt's oncologist at [facility] [place]. Dr. King is concerned the hormonal aspect of the medication may be complicating matters. 06/25 continues to present with rastafari delusions and psychosis, fearful due to VH of devil and guarded. She is not fully mute or with blank stare or waxy flexibility. will continue ativan as is. Will dc trileptal per plan to keep only on lithium. may consider different antipsychotic if too sedated with olanzapine or more sensitive to anticholigergic properties of the medications. 06/26- will try higher potency antipsychotic like risperidone 1mg po BID, may be more effective given severity of symptoms. will continue to monitor s/s of catatonia, no overt mutism, or blank stare, or waxy flexibility, pt isolated but suspect this due to hypervigilant and fearfulness s/s delusions and psychosis. continue ativan tid 06/27 continue risperidone 1mg po BID- d/c olanzapine. continue ativan 0.5mg po TID-monitor catatonia like s/s. 06/28 had meant to lower patient's lithium but she got 450mg bid - will lower to 300/450 tomorrow li lvl been running .98 06/29 I held am dose of lithium and restarted with pm dose of 450mg , will be on total 750mg/day (intead of 900mg) pt also agreed to inc risperidone 1.5mg bid , but instead keeping her at 1mg in am and inc pm dose to 2mg 06/30/23 slight lower of risperidone to 1.5mg at night- see if less fatigued in am - continue 750mg of lithium check lvl tomorrow- said didn't know there would be so much blood tests hasn't had one in 4 days. 07/01: no longer appearing catatonic, reasonably interactive. fatigue continues, agreeable to taper ativan and switch all risperidone to HS. will get 1.5 mg tonight, then none in the morning, then 2.5 mg QHS as of tomorrow night. decrease ativan 0.5 TID to 0.5 BID. will need to recheck lithium level this or friday. case d/w . 07/02: ativan decreased to 0.5 QHS. improving daily. planning for friday labs. no risperidone this morning, less tired. case D/W pt's sister. 07/03: very poor sleep overnight last night, first night with all risperidone (2.5 mg) at HS. return ativan to 1 mg at HS, decrease risperidone to 2 mg, and add benadryl as akathisia prophylaxis to guard against poor sleep. labs in the morning. pre-medicate with xanax. otherwise continue current mgmt. 07/04: slept well last night, labs drawn. BMP WNL, lithium 0.56. decrease HS ativan to 0.5 mg for next two nights, then DC. decrease HS hydroxyzine to 25 mg from 50 mg. otherwise continue current mgmt. 07/05/2023: No changes to current plan Reason for continued inpatient stay Substantial Risk for: rapid decompensation Time Spent With Patient Time: Total time managing care of this patient today ____ minutes.
[2023-07-05 19:58] VITALS: BP 120/67; PULSE 70; RESP 16; TEMP 36.4; O2SAT 98
[2023-07-05] MEDS: Lithium Carbonate ER 450 MG TABLET.ER PO (20:57)
[2023-07-06 06:00] VITALS: BP 114/70; PULSE 56; RESP 14; TEMP 36.2; O2SAT 97
[2023-07-06] MEDS: Lithium Carbonate ER 300 MG TABLET.ER PO (09:41)
--- NOTE | 2023-07-06 11:28 | HO.PSYCHPN ---
Subjective Subjective Date of Service: 07/06/23 Reason For Visit: Psychosis Medical Problems Affecting Mental Status: No Interim History: met with patient. Discussed with Nursing. Chart reviewed. continues to report feeling positive around medication regimen. Very happy with her roommate. Reports they have been praying together and that her roommate has now been a [employer] for the last 2 days. Reports being hopeful that her and her roommate can connect with each other outside of the hospital setting. Feels safe on the unit. Sleep good. No med concerns. Medication Compliance: Yes Side effects from medications: No Attending Groups: Intermittent Review of Systems Acute medical concerns: No Review of Systems Review of Systems Unremarkable Mental Status Exam Mental Status Exam Narrative: dressed in street clothes, adequately groomed. cooperative. no PMA/PMR. speech soft, decr rate, amount. thoughts linear With some mormon preoccupation. affect constricted, normo-intense, non-labile. mood improving. no SI/SIBI/HI/AVH expressed. Diagnostics Vital Signs (24Hr): Vital Signs - 24 hr 07/05/23 19:58 07/06/23 06:00 Temperature 97.5 F 97.2 F Pulse Rate 70 56 Respiratory Rate 16 14 Blood Pressure 120/67 114/70 Pulse Oximetry 98 97 Oxygen Delivery Method Room Air Room Air BMI result Body Mass Index 24.1 Labs 07/04/23 07:46 Medications Medications Current Medications Acetaminophen (Acetaminophen 325 Mg Tablet) 975 mg PO Q6H PRN PRN Reason: Headache/Pain Mild Scale (1-3) Al Hydroxide/Mg Hydroxide (Magnesium Hydrox/Alum Hydrox 30 Ml Oral.Susp) 30 ml PO Q6H PRN PRN Reason: Heartburn/Nausea Alprazolam (Alprazolam 0.5 Mg Tablet) 0.5 mg PO DAILY PRN PRN Reason: needle phobia Anastrozole (Anastrozole 1 Mg Tablet) 1 mg PO DAILY [facility] Last Admin: 06/20/23 09:21 Dose: 1 mg Benzocaine (Benzocaine 20 % Oral Gel 9 Gm Tube) 1 appl MUCOUS MEM QID PRN; Protocol PRN Reason: dental pain Last Admin: 06/21/23 20:34 Dose: 1 appl Diphenhydramine HCl (Diphenhydramine Hcl 25 Mg Capsule) 25 mg PO BEDTIME [facility] Last Admin: 07/05/23 20:58 Dose: 25 mg Fluticasone Propionate (Fluticasone Propionate Nasal 16 Gm [place]) 1 spray NOSTRIL-B DAILY [facility] Last Admin: 07/06/23 09:42 Dose: Not Given Hydroxyzine HCl (Hydroxyzine Hcl 25 Mg Tablet) 25 mg PO Q6H PRN PRN Reason: Anxiety Last Admin: 06/27/23 01:09 Dose: 25 mg [place] Carbonate ([place] Carbonate Er 450 Mg Tablet.Er) 450 mg PO BEDTIME [facility] Last Admin: 07/05/23 20:57 Dose: 450 mg [place] Carbonate ([place] Carbonate Er 300 Mg Tablet.Er) 300 mg PO DAILY [facility] Last Admin: 07/06/23 09:41 Dose: 300 mg Magnesium Hydroxide (Milk Of Magnesia 30 Ml Oral.Susp) 30 ml PO DAILY PRN PRN Reason: Constipation Nicotine Polacrilex (Nicotine Polacrilex 2 Mg Gum) 4 mg BUCCAL Q2H PRN PRN Reason: Nicotine Cravings Ondansetron HCl (Ondansetron Odt 4 Mg Tab.Rapdis) 4 mg TRANSLINGU Q8H PRN PRN Reason: Nausea and Vomiting Risperidone (Risperidone 2 Mg Tablet) 2 mg PO BEDTIME [facility] Last Admin: 07/05/23 20:57 Dose: 2 mg Trazodone HCl (Trazodone Hcl 50 Mg Tablet) 50 mg PO BEDTIME PRN PRN Reason: Insomnia Allergies Allergies Allergy/AdvReac Type Severity Reaction Status Date / Time Unable to Assess Allergy Verified 06/19/23 14:18 Assessment & Plan Assessment & Plan (1) Bipolar I disorder with conor: Status: Acute Code(s): F31.10 - Bipolar disorder, current episode manic without psychotic features, unspecified Plan 1) conor - DC caplyta 42, add zyprexa 10 QHS 06/20. start lithium per pt request 06/20. taper and DC lamictal and trileptal as not evidence-based mood stabilizers and not indicated in the present clinical context. 06/21 decrease HS zyprexa from 10 mg to 5 mg QHS after pt c/o sedation. DCed lamictal 06/23. seems to have slowed down much by 06/23, appearing nearly catatonic as of 06/24. increased HS zyprexa back to 10 mg as of 06/24, started ativan 0.5 TID for guard against worsening catatonia. check lithium level and labs 06/25, provide pt with benzo prep for blood draw as she is severely needle-phobic. 2) cancer - per collateral from pt's , DC anastrozole 06/20 on the word of Dr. King, pt's oncologist at [facility] [place]. Dr. King is concerned the hormonal aspect of the medication may be complicating matters. 06/25 continues to present with mormon delusions and psychosis, fearful due to VH of devil and guarded. She is not fully mute or with blank stare or waxy flexibility. will continue ativan as is. Will dc trileptal per plan to keep only on lithium. may consider different antipsychotic if too sedated with olanzapine or more sensitive to anticholigergic properties of the medications. 06/26- will try higher potency antipsychotic like risperidone 1mg po BID, may be more effective given severity of symptoms. will continue to monitor s/s of catatonia, no overt mutism, or blank stare, or waxy flexibility, pt isolated but suspect this due to hypervigilant and fearfulness s/s delusions and psychosis. continue ativan tid 06/27 continue risperidone 1mg po BID- d/c olanzapine. continue ativan 0.5mg po TID-monitor catatonia like s/s. 06/28 had meant to lower patient's lithium but she got 450mg bid - will lower to 300/450 tomorrow li lvl been running .98 06/29 I held am dose of lithium and restarted with pm dose of 450mg , will be on total 750mg/day (intead of 900mg) pt also agreed to inc risperidone 1.5mg bid , but instead keeping her at 1mg in am and inc pm dose to 2mg 06/30/23 slight lower of risperidone to 1.5mg at night- see if less fatigued in am - continue 750mg of lithium check lvl tomorrow- said didn't know there would be so much blood tests hasn't had one in 4 days. 1/2: no longer appearing catatonic, reasonably interactive. fatigue continues, agreeable to taper ativan and switch all risperidone to HS. will get 1.5 mg tonight, then none in the morning, then 2.5 mg QHS as of tomorrow night. decrease ativan 0.5 TID to 0.5 BID. will need to recheck lithium level this or friday. case d/w . 07/02: ativan decreased to 0.5 QHS. improving daily. planning for friday labs. no risperidone this morning, less tired. case D/W pt's sister. 07/03: very poor sleep overnight last night, first night with all risperidone (2.5 mg) at HS. return ativan to 1 mg at HS, decrease risperidone to 2 mg, and add benadryl as akathisia prophylaxis to guard against poor sleep. labs in the morning. pre-medicate with xanax. otherwise continue current mgmt. 07/04: slept well last night, labs drawn. BMP WNL, lithium 0.56. decrease HS ativan to 0.5 mg for next two nights, then DC. decrease HS hydroxyzine to 25 mg from 50 mg. otherwise continue current mgmt. 07/05/2023: No changes to current plan 07/06/2023: will change observation status back to 15 minute checks, otherwise no changes to current plan Reason for continued inpatient stay Substantial Risk for: rapid decompensation Time Spent With Patient Time: Total time managing care of this patient today ____ minutes.
[2023-07-06 20:30] VITALS: BP 122/67; PULSE 68; RESP 16; TEMP 36.9; O2SAT 98
[2023-07-06] MEDS: Lithium Carbonate ER 450 MG TABLET.ER PO (20:36)
[2023-07-06] MEDS: hydrOXYzine HCL 25 MG TABLET PO (21:07)
[2023-07-06] MEDS: traZODone HCL 50 MG TABLET PO (23:35)
[2023-07-07 07:35] VITALS: BP 123/61; PULSE 69; RESP 18; TEMP 36.7; O2SAT 96
[2023-07-07] MEDS: Lithium Carbonate ER 300 MG TABLET.ER PO (08:28)
--- NOTE | 2023-07-07 10:46 | PM.PSYDC ---
DS: Providers Provider Date of Service: 07/07/23 Date of admission: 06/19/23 14:15 Primary care physician: Unknown Physician Consults: 06/19/23 14:18 Consult to Hospitalist Routine Comment: Consulting Provider: Hospitalist Reason For Exam: OSH admission DS: Diagnosis Discharge Diagnosis (1) Bipolar I disorder with conor: Status: Acute DS: Medications Discharge Medications Home Medications: Home Medications Medication Instructions Recorded Confirmed anastrozole 1 mg tablet 1 mg PO DAILY 06/19/23 06/19/23 lorazepam 1 mg tablet (Ativan) 1 mg PO 06/19/23 omega-3 300 mg-dha 120 mg-epa 180 1 cap PO QAM 06/19/23 06/19/23 mg-fish oil 1,000 mg capsule Previous Rx's Medication Instructions Recorded acetaminophen 325 mg tablet 975 mg (3 x 325 mg) PO Q6H PRN 07/07/23 Headache/Pain Mild Scale (1-3) 30 days #360 tabs diphenhydramine HCl 25 mg capsule 25 mg PO BEDTIME 30 days #30 caps 07/07/23 fluticasone propionate 50 1 spray intranasal DAILY 30 days 07/07/23 mcg/actuation nasal #1 inhaler spray,suspension lithium carbonate 450 mg 450 mg PO BID 30 days #60 tabs 07/07/23 tablet,extended release risperidone 0.5 mg tablet 2.5 mg (5 x 0.5 mg) PO BEDTIME 30 07/07/23 days #150 tabs Mental Status Exam Mental Status Exam Narrative: dressed in street clothes, adequately groomed. cooperative. no PMA/PMR. speech soft, decr rate, nml amount. thoughts linear With some jain preoccupation. affect flexible, normo-intense, non-labile. mood really good. no SI/SIBI/HI/AVH. Data Data Completed and Pending Completed studies during hospitalization [Text1]: 07/04/23 07:46 Sodium 137 Potassium 3.7 Chloride 103 Carbon Dioxide 28 Anion Gap 10 L BUN 14 Creatinine 0.58 Estim Creat Clear Calc 96.0 Estimated GFR > 60 Random Glucose 96 Calcium 8.9 D [place] 0.56 L DS: Summary Hospital Course Hospital Course: per 06/20 admission note: per crisis moises pt voluntarily presented to [facility], with her , seeking inpt care. she was described as not being oriented to time, place, person, or situation at presentation and was unable to participate in evaluation.she appeared to be hyper-jain, lying in blanket occasionally raising her arms to the air as if beseeching, making jain-themed utterances. per collateral from , pt had medication change this fall and recently arrived at therapeutic dose of new medication, which does not appear to be helping. she has become progressively more psychotic in recent days. she had breast CA Dx this fall and had successful surgery, had not been on chemo but had been getting radiation Tx (stopped since psychosis recrudescence). on interview with MD, pt states we are in [place] and is unable to name the name of this facility, even after being told we are in [place]. believes we are on 4th floor. states xmas is june 29. unable to say whether this is a typcail conor presentation for her, saying her manias used to be more angry, but now they are fun because i get to see all the things i want to see. she references jain entities. she endorsed hearing the voice of god presently. she reported that her mother 5 years ago and at the same time she had her ovaries removed, and then her mental illness began ( corroborates this information). she reports fear of needles and only staying on lithium briefly because of that. per , lithium worked well for her. both and pt report negative experience with VPA, saying it exacerbated conor (possibly delirium?). she has not tried tegretol. evidence-based mood stabilizers reviewed with pt, she agrees to trial of lithium. per conversation with , pt has been on various medications over the past 4 years, and has not become stable. he feels that trileptal and lamictal have been completely ineffective, but that the brief period she was on lithium she did much better. he does not believe caplyta has helped and is in favor of DCing lamictal, trileptal, and caplyta. he reports conversation with pt's oncologist, Dr. King of [facility], whom he reports endorsed DC of anastrozole for now. Past Psychiatric History: hosps: 3 prior SA: denies SIB: denies HIB: denies outpt: seen at [facility] dann pretty prescriber lithium - h/o trial, briefly, DCed due to pt's fear of needles VPA - both pt and report worsened conor with VPA. ? delirium? tegretol - no h/o trial Medical Evaluation Reviewed: Hospitalist Sherineal [facility] Medical History (Updated 06/20/23 @ 14:25 by Tony Anderson MD) Bipolar disorder Breast cancer, right Narrative: 03/2023 had breast CA sugery Surgical History (Updated 06/19/23 @ 18:18 by ADELITA Sumner) H/O bilateral oophorectomy Family History: depression - sister, brother, father Social History: , works as a massage therapist. born and raised in [place]. 2 kids. 1 sister. 1 brother. Substance History: denies use of all substances Trauma History: denies any trauma Hx Precis: 1) conor - DC caplyta 42, add zyprexa 10 QHS 06/20. start lithium per pt request 06/20. taper and DC lamictal and trileptal as not evidence-based mood stabilizers and not indicated in the present clinical context. 06/21 decrease HS zyprexa from 10 mg to 5 mg QHS after pt c/o sedation. DCed lamictal 06/23. seems to have slowed down much by 06/23, appearing nearly catatonic as of 06/24. increased HS zyprexa back to 10 mg as of 06/24, started ativan 0.5 TID for guard against worsening catatonia. check lithium level and labs 06/25, provide pt with benzo prep for blood draw as she is severely needle-phobic. 2) cancer - per collateral from pt's , DC anastrozole 06/20 on the word of Dr. King, pt's oncologist at [facility]. Dr. King is concerned the hormonal aspect of the medication may be complicating matters. 06/25 continues to present with jain delusions and psychosis, fearful due to VH of devil and guarded. She is not fully mute or with blank stare or waxy flexibility. will continue ativan as is. Will dc trileptal per plan to keep only on lithium. may consider different antipsychotic if too sedated with olanzapine or more sensitive to anticholigergic properties of the medications. 06/26- will try higher potency antipsychotic like risperidone 1mg po BID, may be more effective given severity of symptoms. will continue to monitor s/s of catatonia, no overt mutism, or blank stare, or waxy flexibility, pt isolated but suspect this due to hypervigilant and fearfulness s/s delusions and psychosis. continue ativan tid 06/27 continue risperidone 1mg po BID- d/c olanzapine. continue ativan 0.5mg po TID-monitor catatonia like s/s. 06/28 had meant to lower patient's lithium but she got 450mg bid - will lower to 300/450 tomorrow li lvl been running .98 06/29 I held am dose of lithium and restarted with pm dose of 450mg , will be on total 750mg/day (intead of 900mg) pt also agreed to inc risperidone 1.5mg bid , but instead keeping her at 1mg in am and inc pm dose to 2mg 06/30/23 slight lower of risperidone to 1.5mg at night- see if less fatigued in am - continue 750mg of lithium check lvl tomorrow- said didn't know there would be so much blood tests hasn't had one in 4 days. 1: no longer appearing catatonic, reasonably interactive. fatigue continues, agreeable to taper ativan and switch all risperidone to HS. will get 1.5 mg tonight, then none in the morning, then 2.5 mg QHS as of tomorrow night. decrease ativan 0.5 TID to 0.5 BID. will need to recheck lithium level this or friday. case d/w . 07/02: ativan decreased to 0.5 QHS. improving daily. planning for friday labs. no risperidone this morning, less tired. case D/W pt's sister. 07/03: very poor sleep overnight last night, first night with all risperidone (2.5 mg) at HS. return ativan to 1 mg at HS, decrease risperidone to 2 mg, and add benadryl as akathisia prophylaxis to guard against poor sleep. labs in the morning. pre-medicate with xanax. otherwise continue current mgmt. 07/04: slept well last night, labs drawn. BMP WNL, lithium 0.56. decrease HS ativan to 0.5 mg for next two nights, then DC. decrease HS hydroxyzine to 25 mg from 50 mg. otherwise continue current mgmt. 07/05/2023: No changes to current plan 07/06/2023: will change observation status back to 15 minute checks, otherwise no changes to current plan. 07/07: more hyper-jain, perhaps delusional, strange experiences of communicating with god. increase lithium back to 450 BID and increase risperidone back to 2.5 mg QHS. will still discharge as per plan, aftercare in place. was informed not to use ibuprofen or naprosyn while on lithium. Time Spent with Patient Time attestation: Total time managing care of this patient today ____ minutes. Time spent: Greater than 30 minutes Discharge Plan Discharge Anticipated Discharge Date/Time: 07/07/23 14:00 Patient Disposition: Home, Self-Care Discharge Diagnosis: Bipolar I Disorder, MRE Manic Referrals: Tamika Maxwell (Therapy) [Other] - 07/10/23 10:00 am (IN OFFICE APPOINTMENT) Yane Vaughn (Psychiatry) [Other] - 07/22/23 11:00 am Shayan Garcias [Other] - 1 Week (This office will call you with an appointment) Discharge Medications: New lithium carbonate 450 mg Tablet Extended Release 450 mg PO BID 30 Days Qty: 60 0RF diphenhydramine HCl 25 mg Capsule 25 mg PO BEDTIME 30 Days Qty: 30 0RF fluticasone propionate 50 mcg/actuation [place],Suspension 1 spray intranasal DAILY 30 Days Qty: 1 0RF risperidone 0.5 mg Tablet 2.5 mg PO BEDTIME 30 Days Qty: 150 0RF acetaminophen 325 mg Tablet 975 mg PO Q6H PRN (Reason: Headache/Pain Mild Scale (1-3)) 30 Days Qty: 360 0RF lorazepam 1 mg Tablet 1 mg PO BEDTIME PRN (Reason: insomnia) Qty: 0 0RF Continued omega 0-[id number]-[id number]-fish oil 300 mg (120 mg- 180mg)-1,000 mg capsule 1 cap PO QAM Held anastrozole 1 mg tablet 1 mg PO DAILY Hold Instructions: Resume on 08/28/23. hold until you are able to meet with your oncologist to discuss further treatment of your cancer diagnosis with him. Discontinued oxcarbazepine 300 mg tablet 300 mg PO BEDTIME lorazepam [Ativan] 1 mg tablet 1 mg PO lamotrigine 100 mg tablet 100 mg PO BEDTIME lurasidone 120 mg tablet 120 mg PO BEDTIME Caplyta 42 mg capsule 42 mg PO BEDTIME Caplyta 10.5 mg capsule 10.5 mg PO BEDTIME Caplyta 21 mg capsule 21 mg PO BEDTIME Discharge Orders: Discharge Order (Routine); Ordered 07/07/23 Ordered By: Tony Anderson Diet: Advance to usual diet Activity on Discharge: As tolerated Stand Alone Forms: Patient Portal Discharge page, Community Support Care Plan Goals: remain safe and stable in the outpatient treatment setting Health Concerns: none Plan of Treatment: take medications as prescribed, attend appointments as scheduled Assessment: not at imminent risk of harm to self or others
--- NOTE | 2023-07-07 13:34 | PC.NURSE ---
Lizet is alert, fully oriented, pleasant and cooperative with discharge process. She verbalizes understanding of prescribed medications and appointments. She denies ideation, plan or intent to harm self or others. She denies physical complaint. [ End ]
== END 2023-07-07 14:00 | disposition home or self-care (01) | DRG 753 ==
PROVIDERS: Clinical Nurse Specialist Psychiatric/Mental Health, Adult; Admitting Provider Psychiatry & Neurology Psychiatry; Visit Provider Psychiatry & Neurology Psychiatry
DX: F31.10 Bipolar disorder, current episode manic without psychotic features, unspecified (principal); C50.911 Malignant neoplasm of unspecified site of right female breast; Z20.822 Contact with and (suspected) exposure to COVID-19; Z79.51 Long term (current) use of inhaled steroids; Z79.899 Other long term (current) drug therapy
CPT/HCPCS: 36415; 80048; 80178; 87635

== ENCOUNTER → 2023-06-19 14:15 | Outpatient (BNV) | payer OTHER, SELFPAY | PROVIDERS: Admitting Provider Psychiatry & Neurology Psychiatry; Visit Provider Psychiatry & Neurology Psychiatry | DX: F31.10 Bipolar disorder, current episode manic without psychotic features, unspecified (principal) | CPT/HCPCS: 99231; 99232; 99233 ==

== ENCOUNTER → 2023-06-19 14:15 | Outpatient (BNV) | payer OTHER, SELFPAY | PROVIDERS: Admitting Provider Psychiatry & Neurology Psychiatry; Visit Provider Student in an Organized Health Care Education/Training Program | DX: Z02.2 Encounter for examination for admission to residential institution (principal) | CPT/HCPCS: 99429 ==